=== PATIENT | female | born 1940 | race Hispanic/Latino ===

== ENCOUNTER 2016-09-12 02:17 | Emergency (ER) | payer MEDICARE, OTHER ==
[2016-09-12 02:17] VITALS: PULSE 102
[2016-09-12] MEDS ORDERED: Aspirin 325 mg EC Tablets PO STA (02:45)
--- NOTE | 2016-09-12 02:45 | C.PDOC ---
History Of Present Illness Patient presents to the emergency room with complaints of intermittent left sided chest wall pain that started at 9:30pm. Patient is speaking in full sentences. Patient denies any shortness of breath, fever, chills, nausea, vomiting, or any other complaints. Time Seen by Provider: 09/12/16 02:41 Chief Complaint (Nursing): Chest Pain History Per: Patient History/Exam Limitations: no limitations Onset/Duration Of Symptoms: Hrs (5) Current Symptoms Are (Timing): Still Present Severity: Mild Quality: "Pain" Associated Symptoms: denies: Nausea Modifying Factors: None Exacerbating Factors: None Alleviating Factors: None Recent travel outside of the [place]: No Past Medical History Reviewed: Historical Data, Nursing Documentation, Vital Signs Vital Signs: Last Vital Signs Temp 97.8 F 09/12/16 02:29 Pulse 58 L 09/12/16 02:29 Resp 16 09/12/16 02:29 BP 173/74 H 09/12/16 02:29 Pulse Ox 95 09/12/16 03:27 - Medical History PMH: Arthritis, Atrial Fibrillation, CAD, Diabetes, HTN, Hypercholesterolemia, Osteoporosis Denies: Chronic Kidney Disease, TIA Surgical History: Coronary Stent - [facility] Procedures CORONAR ARTERIOGR-2 CATH (01/26/14) INJECT/INFUSE NEC (01/26/14) INSERTION OF ONE VASCULAR STENT (01/26/14) INSERTION OF TWO VASCULAR STENTS (09/28/12) INSRT OF DRUG-ELUTING CORON ARTERY STENTS(S) (01/26/14) LEFT HEART CARDIAC CATH (01/26/14) LT HEART ANGIOCARDIOGRAM (01/26/14) PERCUTANEOUS TRANSLUMINAL CORONARY ANGIOPLASTY [PTCA] (01/26/14) PROCEDURE ON SINGLE VESSEL (01/26/14) TRANSLUMINAL CORONARY ATHERECTOMY (01/26/14) Family History: States: Unknown Family Hx, Diabetes - Social History Hx Tobacco Use: No Hx Alcohol Use: No Hx Substance Use: No - Immunization History Hx Tetanus Toxoid Vaccination: No Hx Influenza Vaccination: No Hx Pneumococcal Vaccination: No Review Of Systems Constitutional: Negative for: Fever, Chills Cardiovascular: Positive for: Chest Pain (Chest wall pain) Respiratory: Negative for: Shortness of Breath Gastrointestinal: Negative for: Nausea, Vomiting Physical Exam - Physical Exam Appears: Non-toxic Skin: Warm, Dry Neck: Normal ROM, No Midline Cervical Tenderness, No Paracervical Tenderness, Supple Chest: Symmetrical, No Deformity, No Tenderness Cardiovascular: Rhythm Regular Respiratory: No Rales, No Rhonchi, No Wheezing Gastrointestinal/Abdominal: Soft, No Tenderness, No Guarding, No Rebound Back: No CVA Tenderness, No Vertebral Tenderness Extremity: Normal ROM, No Tenderness, No Calf Tenderness, No Swelling Neurological/Psych: Oriented x3, Normal Speech ED Course And Treatment - Laboratory Results Result Diagrams: 09/12/16 02:51 09/12/16 02:51 ECG: Interpreted By Me, Viewed By Me ECG Rhythm: Sinus Rhythm, Nonspecific Changes O2 Sat by Pulse Oximetry: 95 Pulse Ox Interpretation: Normal - Radiology CXR: Interpreted by Me, Viewed By Me CXR Interpretation: No: Infiltrates, Fracture, Pnemothorax Progress Note: Upon provider reevaluation patient is feeling better, is medically stable, and requires no further treatment in the ED at this time. Patient will be discharged home .. Counseling was provided and all questions were answered regarding diagnosis and need for follow up with Dr Cochran. There is agreement to discharge plan. Return if symptoms persist or worsen. Reevaluation Time: 06:31 Reassessment Condition: Improved Medical Decision Making Medical Decision Making: I considered the following diagnoses: acute coronary syndrome, pulmonary embolism, lower respiratory infection, aortic dissection/aneurysm, pneumothorax , pericarditis, esophagitis/GERD, zoster and esophageal rupture but found them to be unlikely based on the history, physical exam, and diagnostics. My conclusions regarding the unlikely diagnoses were based on: the absence of significant EKG abnormalities, the lack of suggestive x-ray findings, the absence of significant abnormalities on cardiac monitoring, the absence of asymmetric pulses, Disposition Counseled Patient/Family Regarding: Studies Performed, Diagnosis, Need For Followup - Disposition Referrals: Anna Cochran MD [Staff Provider] - Disposition: HOME/ ROUTINE Disposition Time: 02:44 Condition: FAIR Additional Instructions: Please return if symptoms recur Instructions: Chest Wall Pain in Children (ED), Chest Pain (DC) Print Language: DJIBOUTIAN - Clinical Impression Clinical Impression: Chest pain - Scribe Statement The provider has reviewed the documentation as recorded by the Kena Louie Provider Scribe Attestation: All medical record entries made by the Garyibaimee were at my direction and personally dictated by me. I have reviewed the chart and agree that the record accurately reflects my personal performance of the history, physical exam, medical decision making, and the department course for this patient. I have also personally directed, reviewed, and agree with the discharge instructions and disposition.
[2016-09-12] MEDS ORDERED: Aspirin 325 mg EC Tablets PO ONE (02:51)
[2016-09-12 02:54] LABS: BASO # 0.1 K/uL (0.0-0.2); BASO % 2.3 % (0.0-2.0); EOS # 0.2 K/uL (0.0-0.7); EOS % 4.2 % (0.0-4.0); LYMPH # 1.6 K/uL (1.0-4.3); LYMPH % 29.1 % (20.0-40.0); MEAN CELL VOLUME 92.5 fL (81.0-99.0); MEAN CORPUSCULAR HEMOGLOBIN 29.6 pg (27.0-31.0); MEAN PLATELET VOLUME 11.1 fL (7.2-11.7); MONO # 0.6 K/uL (0.0-0.8); MONO % 10.8 % (0.0-10.0); RED CELL DISTRIBUTION WIDTH 15.2 % (11.5-14.5); WHITE BLOOD COUNT 5.7 K/uL (4.8-10.8)
[2016-09-12 02:58] LABS: RBC URINE 1 /hpf (0-3); URINE BILIRUBIN NEGATIVE (NEGATIVE); URINE BLOOD NEGATIVE (NEGATIVE); URINE COLOR Yellow (YELLOW); URINE GLUCOSE (UA) NORMAL (Normal); URINE KETONE NEGATIVE (NEGATIVE); URINE LEUKOCYTE ESTERASE 1+ Leu/uL (Negative); URINE PROTEIN NEGATIVE (NEGATIVE); URINE UROBILINOGEN NORMAL mg/dL (0.2-1.0); WBC URINE 9 /hpf (0-5)
[2016-09-12 03:03] LABS: CHLORIDE 103 mmol/L (98-107); SODIUM 141 mmol/L (132-148)
[2016-09-12 03:06] LABS: ALB/GLOB RATIO 1.1 (1.0-2.1); ALKALINE PHOSPHATASE 35 U/L (38-126); ALT/SGPT 28 U/L (9-52); AST/SGOT 31 U/L (14-36); BILIRUBIN,TOTAL 0.5 mg/dL (0.2-1.3); BLOOD UREA NITROGEN 31 mg/dL (7-17); CARBON DIOXIDE 26 mmol/L (22-30); GFR AFRICAN-AMERICAN 44; GLUCOSE,RANDOM 99 mg/dL (65-105); TOTAL PROTEIN 7.5 g/dL (6.3-8.3)
[2016-09-12 03:07] LABS: CALCIUM 10.1 mg/dl (8.6-10.4)
[2016-09-12 06:44] VITALS: BP 149/77; PULSE 64; RESP 20; TEMP 97.6; O2SAT 98
--- NOTE | 2016-09-12 07:47 | RAD ---
PROCEDURE: CHEST RADIOGRAPH, 1 VIEW HISTORY: chest pain COMPARISON: Comparison is made to 06/10/2016 FINDINGS: LUNGS: No evidence of new infiltrate or consolidation in the lungs. PLEURA: No pneumothorax or pleural fluid seen. CARDIOVASCULAR: Normal. OSSEOUS STRUCTURES: No significant abnormalities. VISUALIZED UPPER ABDOMEN: Normal. OTHER FINDINGS: None. IMPRESSION: No active disease.
--- NOTE | 2016-09-17 13:31 | CARD ---
APPROVED REPORT EKG Measurement Heart [id number] UT 160P-22 [id number] <Conclusion> Sinus bradycardia with sinus arrhythmia Minimal voltage criteria for LVH, may be normal variant Borderline ECG
== END 2016-09-12 07:02 | disposition home or self-care (01) ==
LOC: C.ER 02:17
DX: R07.9 Chest pain, unspecified (principal)

== ENCOUNTER 2016-11-17 06:58 | Day surgery (SDC) | payer MEDICARE, OTHER ==
[2016-11-04 07:54] VITALS: BMI 24.7
[~2016-11-17 06:58] MED LIST: Ciprofloxacin 0.3% OPTH SOLN OD SCH; Cyclopentolate 1% Opth (2 ml) OD SCH; Flurbiprofen 0.03% Opht SOLN OD SCH; Lactated Ringer's 500 ML IV ONE; Phenylephrine 2.5% Opht Soln OD SCH; Tropicamide 1% Opht SOLUTION OD SCH
[2016-11-17] MEDS ORDERED: Tobramycin/Dexamethasone (Tobradex) Opth Sol (2.5 ml) ONE (07:34)
[2016-11-17] MEDS ORDERED: Povidone Iodine Ophthalmic 5% Soln ONE (07:34)
[2016-11-17] MEDS ORDERED: Chondroitin/Hyaluronate Opth Syringe KIT (0.55 ml-0.5 ml) IO ONE (07:34)
[2016-11-17] MEDS ORDERED: Carbachol 0.01% IO ONE (07:34)
[2016-11-17] MEDS ORDERED: Tetracaine 0.5% Ophth (OR ONLY) ONE (07:34)
[2016-11-17] MEDS ORDERED: Tobramycin/Dexamethasone OPHT OINT ONE (07:34)
[2016-11-17] MEDS ORDERED: Hyaluronidase Human, Recombi 150 U/ML VIAL ONE (07:34)
[2016-11-17] MEDS ORDERED: Lidocaine 2% Inj (20ml) ONE (07:34)
[2016-11-17] MEDS ORDERED: Lactated Ringer's 500 ML IV ONE (07:40)
[2016-11-17] MEDS ORDERED: Propofol 10 mg/ml Inj (20 ML) ONE (09:18)
[2016-11-17 10:14] VITALS: O2SAT 98
[2016-11-17 11:57] VITALS: BP 151/71; PULSE 64; RESP 18; TEMP 97.8
--- NOTE | 2016-11-20 21:17 | OP ---
PROCEDURE DATE: 11/17/2016 PREOPERATIVE DIAGNOSIS: CATARACT RIGHT EYE. POSTOPERATIVE DIAGNOSIS: CATARACT RIGHT EYE. OPERATIVE PROCEDURE: CATARACT EXTRACTION WITH IMPLANT RIGHT EYE. ANESTHESIA TYPE: LOCAL, STAND-BY. ANESTHESIOLOGIST: COMPLICATIONS: NONE. PROCEDURE: Local anesthesia was achieved using a mixture of 1% lidocaine and Amphadase. The patient was then prepped and draped in the usual sterile fashion for ophthalmic surgery. Betadin e drops were placed into the eye. A lid speculum was used and a sideport incision was made using a 1 5 degree blade. Viscoelastic was used to fill the anterior chamber and a 2.7 millimeter slit blade w as used to create a surgical opening. Additional viscoelastic was placed into the eye and a capsulor rhexis was performed. Hydrodissection and delineation were then carried out. Phacoemulsification of the nucleus was performed with ease and cortical cleanup was achieved without difficulty. The capsul ar bag was refilled using viscoelastic and a posterior chamber lens was inserted through the existing wound and placed into the capsular bag and easily centered. All viscoelastic was then aspirated from the eye and Miochol was instilled for good symmetric pupilla ry constriction. The sideport wound was hydrated as necessary and a good watertight closure was obse rved at the conclusion of the case. A TobraDex soaked collagen shield was then placed over the eye. The lid speculum was removed. TobraDex ointment was placed onto the eye and a patch and shield were placed. The patient tolerated the procedure well. Cesar Hilario MD cc: [id number] TT: 11/20/2016 21:17:04 carol
== END 2016-11-17 11:00 | disposition home or self-care (01) ==
LOC: C.SDS 06:58
PROVIDERS: ATTEND Ophthalmology
DX: H25.11 Age-related nuclear cataract, right eye (principal)
CPT/HCPCS: 66984; J2704; J3470; J7120; V2632

== ENCOUNTER 2017-10-17 08:56 | Emergency (ER) | payer MEDICARE, OTHER ==
[2017-10-17 08:56] VITALS: PULSE 102; BMI 24.7
[2017-10-17 09:07] VITALS: TEMP 98.5
--- NOTE | 2017-10-17 09:15 | C.PDOC ---
History Of Present Illness 77 year old female, with PMHx of HTN, hypercholesterolemia, osteoporosis, CAD w stent, presents to ED for evaluation of chest pain since 9PM last night. Patient 's stress report from 2017 was reviewed. Otherwise, denies cough, shortness of breath, or any other associated symptoms at this time. Time Seen by Provider: 10/17/17 09:11 Chief Complaint (Nursing): Chest Pain History Per: Patient History/Exam Limitations: no limitations Onset/Duration Of Symptoms: Days (1) Current Symptoms Are (Timing): Still Present Quality: "Pain" Associated Symptoms: denies: Nausea, Dyspnea, Diaphoresis, Syncope Modifying Factors: None Exacerbating Factors: None Alleviating Factors: None Recent travel outside of the [place]: No Additional History Per: Patient Past Medical History Reviewed: Historical Data, Nursing Documentation, Vital Signs Vital Signs: Last Vital Signs Temp 98.5 F 10/17/17 09:00 Pulse 54 L 10/17/17 11:17 Resp 16 10/17/17 11:17 BP 121/61 10/17/17 11:17 Pulse Ox 100 10/17/17 11:17 - Medical History PMH: Alzheimer's Disease, Arthritis, Atrial Fibrillation, CAD, Diabetes, HTN, Hypercholesterolemia, Osteoporosis, Chronic Kidney Disease Denies: TIA Surgical History: Coronary Stent - [facility] Procedures CORONAR ARTERIOGR-2 CATH (01/26/14) INJECT/INFUSE NEC (01/26/14) INSERTION OF ONE VASCULAR STENT (01/26/14) INSERTION OF TWO VASCULAR STENTS (09/28/12) INSRT OF DRUG-ELUTING CORON ARTERY STENTS(S) (01/26/14) LEFT HEART CARDIAC CATH (01/26/14) LT HEART ANGIOCARDIOGRAM (01/26/14) PERCUTANEOUS TRANSLUMINAL CORONARY ANGIOPLASTY [PTCA] (01/26/14) PROCEDURE ON SINGLE VESSEL (01/26/14) TRANSLUMINAL CORONARY ATHERECTOMY (01/26/14) Family History: States: Unknown Family Hx, Diabetes - Social History Hx Tobacco Use: No Hx Alcohol Use: No Hx Substance Use: No - Immunization History Hx Tetanus Toxoid Vaccination: No Hx Influenza Vaccination: No Hx Pneumococcal Vaccination: No Review Of Systems Except As Marked, All Systems Reviewed And Found Negative. Constitutional: Negative for: Fever, Chills Cardiovascular: Positive for: Chest Pain. Negative for: Palpitations, Light Headedness Respiratory: Negative for: Cough, Shortness of Breath Gastrointestinal: Negative for: Nausea, Vomiting, Abdominal Pain Neurological: Negative for: Headache, Dizziness Physical Exam - Physical Exam Appears: Non-toxic, No Acute Distress Skin: Normal Color, Warm, Dry Head: Atraumatic, Normacephalic Eye(s): bilateral: Normal Inspection Oral Mucosa: Moist Neck: Normal ROM, Supple Chest: Symmetrical, No Tenderness Cardiovascular: Rhythm Regular, No Murmur Respiratory: Normal Breath Sounds, No Rales, No Rhonchi, No Wheezing Gastrointestinal/Abdominal: Soft, No Tenderness Extremity: Normal ROM Neurological/Psych: Oriented x3, Normal Speech ED Course And Treatment - Laboratory Results Result Diagrams: 10/17/17 10:08 10/17/17 10:08 ECG: Interpreted By Me, Viewed By Me ECG Rhythm: Sinus Rhythm Interpretation Of ECG: T wave inversion in lead III, and AVF unchanged from . Rate From EC (bpm) O2 Sat by Pulse Oximetry: 99 (RA) Pulse Ox Interpretation: Normal - Radiology CXR: Interpreted by Me CXR Interpretation: Yes: No Acute Disease Reevaluation Time: 11:40 Reassessment Condition: Improved Medical Decision Making Medical Decision Making: Plan: Blood work EKG CXR Aspirin Reassess Disposition Counseled Patient/Family Regarding: Studies Performed, Diagnosis, Need For Followup - Disposition Referrals: YOUR,PMD [Other] Disposition: HOME/ ROUTINE Disposition Time: 11:40 Condition: IMPROVED Instructions: Chest Pain (DC) Forms: [facility] (British) Print Language: THAI - Clinical Impression Clinical Impression: Chest pain - Scribe Statement The provider has reviewed the documentation as recorded by the Garyibaimee Zimmerman All medical record entries made by the Garyibaimee were at my direction and personally dictated by me. I have reviewed the chart and agree that the record accurately reflects my personal performance of the history, physical exam, medical decision making, and the department course for this patient. I have also personally directed, reviewed, and agree with the discharge instructions and disposition.
[2017-10-17] MEDS ORDERED: Aspirin 325 mg EC Tablets PO STA (09:54)
[2017-10-17 10:11] LABS: BASO # 0.1 K/uL (0.0-0.2); BASO % 1.8 % (0.0-2.0); EOS # 0.2 K/uL (0.0-0.7); HEMOGLOBIN 11.3 g/dL (11.0-16.0); LYMPH # 1.1 K/uL (1.0-4.3); LYMPH % 18.1 % (20.0-40.0); MEAN CELL VOLUME 91.2 fL (81.0-99.0); MEAN CORPUSCULAR HEMOGLOBIN 30.9 pg (27.0-31.0); MEAN CORPUSCULAR HGB CONC 33.8 g/dL (33.0-37.0); MEAN PLATELET VOLUME 11.4 fL (7.2-11.7); MONO # 0.6 K/uL (0.0-0.8); MONO % 9.7 % (0.0-10.0); NEUT % 67.4 % (50.0-75.0); RBC 3.67 Mil/uL (3.80-5.20); RED CELL DISTRIBUTION WIDTH 15.2 % (11.5-14.5)
[2017-10-17] MEDS ORDERED: Aspirin 325 mg EC Tablets PO ONE (10:12)
[2017-10-17 10:26] LABS: BLOOD UREA NITROGEN 44 mg/dL (7-17); CALCIUM 10.2 mg/dl (8.6-10.4); GFR AFRICAN-AMERICAN 33; GFR NON-AFRICAN AMERICAN 27
[2017-10-17 11:17] VITALS: BP 121/61; PULSE 54; RESP 16
[2017-10-17 11:41] VITALS: O2SAT 99
--- NOTE | 2017-10-17 11:50 | RAD ---
PROCEDURE: CHEST RADIOGRAPH, 1 VIEW HISTORY: Chest pain COMPARISON: Comparison chest dated 09/12/2017 FINDINGS: LUNGS: Poor inspiration with low lung volumes, crowded bronchovascular markings and mild bibasilar atelectasis. Questionable small granuloma left lung apex PLEURA: No pneumothorax or pleural fluid seen. CARDIOVASCULAR: Heart size is upper limits of normal/ borderline enlarged. OSSEOUS STRUCTURES: No significant abnormalities. VISUALIZED UPPER ABDOMEN: Normal. OTHER FINDINGS: None. IMPRESSION: Poor inspiration with low lung volumes, crowded bronchovascular markings and mild bibasilar atelectasis.
--- NOTE | 2017-10-18 16:05 | CARD ---
APPROVED REPORT EKG Measurement Heart [id number] NM [id number] [id number] <Conclusion> Normal sinus rhythm Moderate voltage criteria for LVH, may be normal variant Cannot rule out Inferior infarct, age undetermined Abnormal ECG
== END 2017-10-17 11:48 | disposition home or self-care (01) ==
LOC: C.ER 08:56
DX: R07.9 Chest pain, unspecified (principal); E78.00 Pure hypercholesterolemia, unspecified; I25.10 Atherosclerotic heart disease of native coronary artery without angina pectoris; I12.9 Hypertensive chronic kidney disease with stage 1 through stage 4 chronic kidney disease, or unspecified chronic kidney disease; N18.9 Chronic kidney disease, unspecified; F02.80 Dementia in other diseases classified elsewhere, unspecified severity, without behavioral disturbance, psychotic disturbance, mood disturbance, and anxiety; G30.9 Alzheimer's disease, unspecified; I48.91 Unspecified atrial fibrillation

== ENCOUNTER 2018-02-03 01:28 | Inpatient (IN) | payer MEDICARE, OTHER ==
[2018-02-03 01:29] VITALS: PULSE 102; BMI 24.7
[2018-02-03 02:03] LABS: BASO # 0.1 K/uL (0.0-0.2); BASO % 1.5 % (0.0-2.0); EOS # 0.2 K/uL (0.0-0.7); EOS % 3.7 % (0.0-4.0); HEMOGLOBIN 11.2 g/dL (11.0-16.0); LYMPH # 1.7 K/uL (1.0-4.3); LYMPH % 29.3 % (20.0-40.0); MEAN CELL VOLUME 91.1 fL (81.0-99.0); MEAN CORPUSCULAR HEMOGLOBIN 30.8 pg (27.0-31.0); MEAN CORPUSCULAR HGB CONC 33.8 g/dL (33.0-37.0); MEAN PLATELET VOLUME 10.9 fL (7.2-11.7); MONO # 0.7 K/uL (0.0-0.8); MONO % 12.6 % (0.0-10.0); NEUT # 3.1 K/uL (1.8-7.0); NEUT % 52.9 % (50.0-75.0); NRBC % 0.1 % (0.0-2.0); RBC 3.64 Mil/uL (3.80-5.20); WHITE BLOOD COUNT 5.8 K/uL (4.8-10.8)
[2018-02-03 02:12] LABS: PROTHROMBIN TIME 11.1 SECONDS (9.7-12.2)
[2018-02-03 02:14] LABS: ALB/GLOB RATIO 1.2 (1.0-2.1); ALT/SGPT 25 U/L (9-52); AST/SGOT 27 U/L (14-36); BLOOD UREA NITROGEN 47 mg/dL (7-17); CALCIUM 10.1 mg/dl (8.6-10.4); GFR NON-AFRICAN AMERICAN 27
[2018-02-03 03:11] LABS: HDL CHOLESTEROL 51 mg/dL (30-70)
--- NOTE | 2018-02-03 03:13 | C.PDOC ---
History Of Present Illness 77yo female, with history of hypertension, high cholesterol, cardiac stent placed 5 years ago, comes to ER for evaluation of chest pain, intermittently present since 8PM last night. She reports the pain is 4/10 and has become persistent, causing her concern. She denies any fever, chills, sweats, Time Seen by Provider: 02/03/18 01:46 Chief Complaint (Nursing): Chest Pain History Per: Patient History/Exam Limitations: no limitations Onset/Duration Of Symptoms: Intermittent Episodes, Persistent Current Symptoms Are (Timing): Still Present Pain Scale Rating Of: 4 Additional History Per: Patient Past Medical History Reviewed: Historical Data, Nursing Documentation, Vital Signs Vital Signs: Last Vital Signs Temp 98.1 F 02/03/18 01:36 Pulse 54 L 02/03/18 05:38 Resp 16 02/03/18 05:38 BP 154/69 H 02/03/18 05:38 Pulse Ox 97 02/03/18 05:56 - Medical History PMH: Alzheimer's Disease, Arthritis, Atrial Fibrillation, CAD, Diabetes, HTN, Hypercholesterolemia, Osteoporosis, Chronic Kidney Disease Denies: TIA Surgical History: Coronary Stent - [facility] Procedures CORONAR ARTERIOGR-2 CATH (01/26/14) INJECT/INFUSE NEC (01/26/14) INSERTION OF ONE VASCULAR STENT (01/26/14) INSERTION OF TWO VASCULAR STENTS (09/28/12) INSRT OF DRUG-ELUTING CORON ARTERY STENTS(S) (01/26/14) LEFT HEART CARDIAC CATH (01/26/14) LT HEART ANGIOCARDIOGRAM (01/26/14) PERCUTANEOUS TRANSLUMINAL CORONARY ANGIOPLASTY [PTCA] (01/26/14) PROCEDURE ON SINGLE VESSEL (01/26/14) TRANSLUMINAL CORONARY ATHERECTOMY (01/26/14) Family History: States: Diabetes - Social History Hx Tobacco Use: No Hx Alcohol Use: No Hx Substance Use: No - Immunization History Hx Tetanus Toxoid Vaccination: No Hx Influenza Vaccination: No Hx Pneumococcal Vaccination: No Review Of Systems Except As Marked, All Systems Reviewed And Found Negative. Constitutional: Negative for: Fever, Chills Cardiovascular: Positive for: Chest Pain. Negative for: Palpitations Respiratory: Negative for: Shortness of Breath Gastrointestinal: Negative for: Vomiting, Abdominal Pain Musculoskeletal: Negative for: Neck Pain, Arm Pain, Back Pain Neurological: Negative for: Weakness, Numbness Physical Exam - Physical Exam Appears: No Acute Distress Skin: Normal Color, Warm, Dry Head: Atraumatic, Normacephalic Eye(s): bilateral: Normal Inspection, PERRL, EOMI Neck: Normal, Supple Chest: Symmetrical Cardiovascular: Rhythm Regular Respiratory: Normal Breath Sounds, No Wheezing Gastrointestinal/Abdominal: Normal Exam, Soft, No Tenderness Back: Normal Inspection, No CVA Tenderness, No Vertebral Tenderness, No Paraspinal Tenderness Extremity: Normal ROM, No Tenderness, No Pedal Edema Neurological/Psych: Oriented x3 ED Course And Treatment - Laboratory Results Result Diagrams: 02/03/18 01:57 02/03/18 01:57 ECG: Interpreted By Me, Viewed By Me ECG Rhythm: Sinus Rhythm Interpretation Of ECG: NE 180 QRS 98 QT 416 QTc 432. No ischemic changes. No changes from prior in 10/2017 Rate From EC O2 Sat by Pulse Oximetry: 97 (RA) Pulse Ox Interpretation: Normal Medical Decision Making Medical Decision Making: Plan: * Labs * CXR * EKG * Fentanyl 25mcg IVP [address] Rivers and patient admitted under his service. CXR: No acute pathology. Unchanged from previous. Disposition Counseled Patient/Family Regarding: Diagnosis - Disposition Disposition: HOSPITALIZED Disposition Time: 05:56 Condition: GOOD - Clinical Impression Clinical Impression: Chest pain
[2018-02-03 03:22] LABS: LDL CHOLESTEROL 50 mg/dL (0-129)
--- NOTE | 2018-02-03 08:03 | RAD ---
Chest x-ray two views History: Chest pain. Comparison: 09/12/2016 Findings: Biapical pleural thickening with upper lobe granulomatous changes. Patchy increased markings at the lung bases; left greater than right. Nodular density at the right lung base may represent confluence of shadows of ribs and vessels. Bibasilar breast and nipple shadows. Tortuous aorta. Top normal heart size. Degenerative changes in the spine and shoulders. Impression: Biapical pleural thickening with upper lobe granulomatous changes. Patchy increased markings at the lung bases; left greater than right. Nodular density at the right lung base may represent confluence of shadows of ribs and vessels. Bibasilar breast and nipple shadows. Tortuous aorta.
[2018-02-03 08:18] LABS: CK-MB 0.95 ng/mL (0.0-3.38); TROPONIN I 0.015 ng/mL (0.00-0.120)
[2018-02-03] MEDS ORDERED: Enoxaparin 40 mg Syringe SC SCH (10:00)
[2018-02-03 12:37] VITALS: RESP 20
[2018-02-03 14:57] LABS: CK-MB 1.05 ng/mL (0.0-3.38); TROPONIN I 0.021 ng/mL (0.00-0.120)
--- NOTE | 2018-02-03 19:06 | CARD ---
APPROVED REPORT Date of service: 02/03/2018 EKG Measurement Heart [id number] IN 196P99 [id number] <Conclusion> Normal sinus rhythm Possible Inferior infarct, age undetermined Abnormal ECG
--- NOTE | 2018-02-03 22:47 | CP.PCM.HP ---
Past Patient History - Infectious Disease Hx of Infectious Diseases: None - Tetanus Immunizations Tetanus Immunization: Unknown - Past Medical History & Family History Past Medical History?: Yes - Past Social History Smoking Status: Never Smoked - CARDIAC Hx Atrial Fibrillation: Yes Hx Hypercholesterolemia: Yes Hx Hypertension: Yes - PULMONARY Hx Respiratory Disorders: No - NEUROLOGICAL Hx Alzheimer's Disease: Yes Hx Transient Ischemic Attacks (TIA): No - HEENT Hx HEENT Problems: Yes Hx Cataracts: Yes - RENAL Hx Chronic Kidney Disease: Yes - ENDOCRINE/METABOLIC Hx Endocrine Disorders: No Hx Diabetes Mellitus Type 1: No Hx Diabetes Mellitus Type 2: No - HEMATOLOGICAL/ONCOLOGICAL Hx Blood Disorders: No - INTEGUMENTARY Hx Dermatological Problems: No - MUSCULOSKELETAL/RHEUMATOLOGICAL Hx Falls: No - GASTROINTESTINAL Hx Gastrointestinal Disorders: No - GENITOURINARY/GYNECOLOGICAL Hx Genitourinary Disorders: No - PSYCHIATRIC Hx Substance Use: No - SURGICAL HISTORY Hx Coronary Stent: Yes - ANESTHESIA Hx Anesthesia: Yes Hx Anesthesia Reactions: No Hx Malignant Hyperthermia: No Meds Allergies/Adverse Reactions: Allergies Allergy/AdvReac Type Severity Reaction Status Date / Time iodine Allergy Mild ITCHING Verified 02/03/18 01:41 [email or web address] AdvReac Severe NAUSEA Verified 02/03/18 01:41 Results - Vital Signs Recent Vital Signs: Last Vital Signs Temp 98.2 F 02/03/18 15:06 Pulse 57 L 02/03/18 20:00 Resp 20 02/03/18 15:06 BP 123/70 02/03/18 15:06 Pulse Ox 97 02/03/18 15:06 - Labs Result Diagrams: 02/03/18 01:57 02/03/18 01:57 Labs: Laboratory Results - last 24 hr 02/03/18 02/03/18 02/03/18 01:57 01:57 01:57 WBC 5.8 RBC 3.64 L Hgb 11.2 Hct 33.1 L MCV 91.1 MCH 30.8 MCHC 33.8 RDW 15.0 H Plt Count 248 MPV 10.9 Neut % (Auto) 52.9 Lymph % (Auto) 29.3 Phelps % (Auto) 12.6 H Eos % (Auto) 3.7 Baso % (Auto) 1.5 Neut # (Auto) 3.1 Lymph # (Auto) 1.7 Phelps # (Auto) 0.7 Eos # (Auto) 0.2 Baso # (Auto) 0.1 PT 11.1 INR 1.0 APTT 31 Sodium 144 Potassium 4.2 Chloride 108 H Carbon Dioxide 25 Anion Gap 15 BUN 47 H Creatinine 1.8 H Est GFR ( Amer) 33 Est GFR (Non-Af Amer) 27 Random Glucose 106 H Hemoglobin A1c Calcium 10.1 Magnesium Total Bilirubin 0.4 AST 27 ALT 25 Alkaline Phosphatase 37 L Total Creatine Kinase CK-MB (Mass) Troponin I < 0.0120 Total Protein 7.3 Albumin 4.0 Globulin 3.3 Albumin/Globulin Ratio 1.2 Triglycerides Cholesterol LDL Cholesterol Direct HDL Cholesterol TSH 3rd Generation 02/03/18 02/03/18 02/03/18 02:09 04:38 06:25 WBC RBC Hgb Hct MCV MCH MCHC RDW Plt Count MPV Neut % (Auto) Lymph % (Auto) Phelps % (Auto) Eos % (Auto) Baso % (Auto) Neut # (Auto) Lymph # (Auto) Phelps # (Auto) Eos # (Auto) Baso # (Auto) PT INR APTT Sodium Potassium Chloride Carbon Dioxide Anion Gap BUN Creatinine Est GFR ( Amer) Est GFR (Non-Af Amer) Random Glucose Hemoglobin A1c 6.3 Calcium Magnesium 2.1 Total Bilirubin AST ALT Alkaline Phosphatase Total Creatine Kinase CK-MB (Mass) Troponin I < 0.0120 Total Protein Albumin Globulin Albumin/Globulin Ratio Triglycerides 85 Cholesterol 140 LDL Cholesterol Direct 50 HDL Cholesterol 51 TSH 3rd Generation 1.52 02/03/18 02/03/18 07:49 14:07 WBC RBC Hgb Hct MCV MCH MCHC RDW Plt Count MPV Neut % (Auto) Lymph % (Auto) Phelps % (Auto) Eos % (Auto) Baso % (Auto) Neut # (Auto) Lymph # (Auto) Phelps # (Auto) Eos # (Auto) Baso # (Auto) PT INR APTT Sodium Potassium Chloride Carbon Dioxide Anion Gap BUN Creatinine Est GFR ( Amer) Est GFR (Non-Af Amer) Random Glucose Hemoglobin A1c Calcium Magnesium Total Bilirubin AST ALT Alkaline Phosphatase Total Creatine Kinase 64 80 CK-MB (Mass) 0.95 1.05 Troponin I 0.0150 0.0210 Total Protein Albumin Globulin Albumin/Globulin Ratio Triglycerides Cholesterol LDL Cholesterol Direct HDL Cholesterol TSH 3rd Generation
--- NOTE | 2018-02-03 22:48 | CARD ---
APPROVED REPORT Date of service: 02/03/2018 EXAM: Two-dimensional and M-mode echocardiogram with Doppler and color Doppler. Other Information Quality : GoodRhythm : INDICATION Dyspnea Atrial Fibrillation Cardiac Disease: CAD Chest Pain Palpitations 2D DIMENSIONS IVSd0.8 (0.7-1.1cm)Aortic Root (2D)2.8 (2.0-3.7cm) LVDd5.2 (3.9-5.9cm)PWd0.9 (0.7-1.1cm) LVDs3.1 (2.5-4.0cm)FS (%) 39.4 % LVEF (%)69.5 (>50%) M-Mode DIMENSIONS Left Atrium (MM)3.59 (2.5-4.0cm)IVSd1.76 (0.7-1.1cm) Aortic Root3.01 (2.2-3.7cm)LVDd4.62 (4.0-5.6cm) Aortic Cusp Exc.2.01 (1.5-2.0cm)PWd1.21 (0.7-1.1cm) FS (%) 34 %LVDs3.04 (2.0-3.8cm) LVEF (%)63 (>50%) Mitral Valve MV E Sbewppbi10.4cm/sMV A Orueekba74.0cm/sE/A ratio0.7 TDI E/Lateral E'0.0E/Medial E'0.0 Tricuspid Valve TR Peak Nozbrydf076zl/sTR Peak Gr.[id number] LEFT VENTRICLE The left ventricle is normal size. There is mild concentric left ventricular hypertrophy. Left ventricle systolic function is normal. The Ejection Fraction is 65-70%. There is normal LV segmental wall motion. Tissue Doppler imaging reveals abnormal left ventricular diastolic dysfunction. RIGHT VENTRICLE The right ventricle is normal size. There is normal right ventricular wall thickness. The right ventricular systolic function is normal. ATRIA The left atrium size is normal. The right atrium size is normal. The interatrial septum is intact with no evidence for an atrial septal defect. AORTIC VALVE The aortic valve is normal in structure. No aortic regurgitation is present. There is no aortic valvular stenosis. MITRAL VALVE The posterior mitral valve leaflet appears thickened and calcified , but open well. There is no evidence of mitral valve prolapse. There is no mitral valve stenosis. Mitral regurgitation is mild. TRICUSPID VALVE The tricuspid valve is normal in structure. There is mild tricuspid regurgitation. Right ventricular systolic pressure is estimated at 30-40 mmHg. There is mild pulmonary hypertension. PULMONIC VALVE The pulmonic valve is not well visualized. There is mild pulmonic valvular regurgitation. GREAT VESSELS The aortic root is normal in size. PERICARDIAL EFFUSION There is no significant pericardial effusion. <Conclusion> Left ventricle systolic function is normal. The Ejection Fraction is 65-70%. Hypertensive heart disease. Diastolic dysfunction. No aortic regurgitation is present. Mitral regurgitation is mild. There is mild tricuspid regurgitation. There is mild pulmonary hypertension. There is mild pulmonic valvular regurgitation.
--- NOTE | 2018-02-03 22:52 | CP.PCM.CON ---
History of Present Illness - History of Present Illness History of Present Illness: CC: Chest Pain 77yo female, with history of hypertension, high cholesterol, cardiac stent placed 5 years ago, comes to ER for evaluation of chest pain, intermittently present since 8PM last night. She reports the pain is 4/10 and has become persistent, causing her concern. She denies any fever, chills, sweats, Chief Complaint (Nursing): Chest Pain History Per: Patient History/Exam Limitations: no limitations Onset/Duration Of Symptoms: Intermittent Episodes, Persistent Current Symptoms Are (Timing): Still Present Pain Scale Rating Of: 4 Additional History Per: Patient Past Medical History Reviewed: Historical Data, Nursing Documentation, Vital Signs Vital Signs: Last Vital Signs Temp 98.1 F 02/03/18 01:36 Pulse 54 L 02/03/18 05:38 Resp 16 02/03/18 05:38 BP 154/69 H 02/03/18 05:38 Pulse Ox 97 02/03/18 05:56 - Medical History PMH: Alzheimer's Disease, Arthritis, Atrial Fibrillation, CAD, Diabetes, HTN, Hypercholesterolemia, Osteoporosis, Chronic Kidney Disease Denies: TIA Surgical History: Coronary Stent - [facility] Procedures CORONAR ARTERIOGR-2 CATH (01/26/14) INJECT/INFUSE NEC (01/26/14) INSERTION OF ONE VASCULAR STENT (01/26/14) INSERTION OF TWO VASCULAR STENTS (09/28/12) INSRT OF DRUG-ELUTING CORON ARTERY STENTS(S) (01/26/14) LEFT HEART CARDIAC CATH (01/26/14) LT HEART ANGIOCARDIOGRAM (01/26/14) PERCUTANEOUS TRANSLUMINAL CORONARY ANGIOPLASTY [PTCA] (01/26/14) PROCEDURE ON SINGLE VESSEL (01/26/14) TRANSLUMINAL CORONARY ATHERECTOMY (01/26/14) Family History: States: Diabetes - Social History Hx Tobacco Use: No Hx Alcohol Use: No Hx Substance Use: No - Immunization History Hx Tetanus Toxoid Vaccination: No Hx Influenza Vaccination: No Hx Pneumococcal Vaccination: No Review Of Systems Except As Marked, All Systems Reviewed And Found Negative. Constitutional: Negative for: Fever, Chills Cardiovascular: Positive for: Chest Pain. Negative for: Palpitations Respiratory: Negative for: Shortness of Breath Gastrointestinal: Negative for: Vomiting, Abdominal Pain Musculoskeletal: Negative for: Neck Pain, Arm Pain, Back Pain Neurological: Negative for: Weakness, Numbness Physical Exam - Physical Exam Appears: No Acute Distress Skin: Normal Color, Warm, Dry Head: Atraumatic, Normacephalic Eye(s): bilateral: Normal Inspection, PERRL, EOMI Neck: Normal, Supple Chest: Symmetrical Cardiovascular: Rhythm Regular Respiratory: Normal Breath Sounds, No Wheezing Gastrointestinal/Abdominal: Normal Exam, Soft, No Tenderness Back: Normal Inspection, No CVA Tenderness, No Vertebral Tenderness, No Paraspinal Tenderness Extremity: Normal ROM, No Tenderness, No Pedal Edema Neurological/Psych: Oriented x3 Past Patient History - Infectious Disease Hx of Infectious Diseases: None - Tetanus Immunizations Tetanus Immunization: Unknown - Past Medical History & Family History Past Medical History?: Yes - Past Social History Smoking Status: Never Smoked - CARDIAC Hx Atrial Fibrillation: Yes Hx Hypercholesterolemia: Yes Hx Hypertension: Yes - PULMONARY Hx Respiratory Disorders: No - NEUROLOGICAL Hx Alzheimer's Disease: Yes Hx Transient Ischemic Attacks (TIA): No - HEENT Hx HEENT Problems: Yes Hx Cataracts: Yes - RENAL Hx Chronic Kidney Disease: Yes - ENDOCRINE/METABOLIC Hx Endocrine Disorders: No Hx Diabetes Mellitus Type 1: No Hx Diabetes Mellitus Type 2: No - HEMATOLOGICAL/ONCOLOGICAL Hx Blood Disorders: No - INTEGUMENTARY Hx Dermatological Problems: No - MUSCULOSKELETAL/RHEUMATOLOGICAL Hx Falls: No - GASTROINTESTINAL Hx Gastrointestinal Disorders: No - GENITOURINARY/GYNECOLOGICAL Hx Genitourinary Disorders: No - PSYCHIATRIC Hx Substance Use: No - SURGICAL HISTORY Hx Coronary Stent: Yes - ANESTHESIA Hx Anesthesia: Yes Hx Anesthesia Reactions: No Hx Malignant Hyperthermia: No Meds Allergies/Adverse Reactions: Allergies Allergy/AdvReac Type Severity Reaction Status Date / Time iodine Allergy Mild ITCHING Verified 02/03/18 01:41 regadenoson AdvReac Severe NAUSEA Verified 02/03/18 01:41 - Medications Medications: Current Medications Allopurinol (Zyloprim) 100 mg PO DAILY [facility] Last Admin: 02/03/18 10:53 Dose: 100 mg Aspirin (Ecotrin) 81 mg PO DAILY [facility] Last Admin: 02/03/18 10:53 Dose: Not Given Carvedilol (Coreg) 3.125 mg PO BID [facility] Enoxaparin Sodium (Lovenox) 40 mg SC DAILY [facility] Last Admin: 02/03/18 11:12 Dose: 40 mg Fenofibrate (Tricor) 48 mg PO QPM [facility] Last Admin: 02/03/18 17:31 Dose: 48 mg Hydrochlorothiazide (Hydrodiuril) 25 mg PO DAILY [facility] Last Admin: 02/03/18 10:53 Dose: 25 mg Losartan Potassium (Cozaar) 100 mg PO DAILY [facility] Last Admin: 02/03/18 10:53 Dose: 100 mg Rosuvastatin Calcium (Crestor) 10 mg PO HS [facility] Last Admin: 02/03/18 21:34 Dose: 10 mg Ticagrelor (Brilinta) 60 mg PO BID [facility] Last Admin: 02/03/18 17:31 Dose: 60 mg Results - Vital Signs Recent Vital Signs: Last Vital Signs Temp 98.2 F 02/03/18 15:06 Pulse 57 L 02/03/18 20:00 Resp 20 02/03/18 15:06 BP 123/70 02/03/18 15:06 Pulse Ox 97 02/03/18 15:06 - Labs Result Diagrams: 02/03/18 01:57 02/03/18 01:57 Labs: Laboratory Results - last 24 hr 02/03/18 02/03/18 02/03/18 01:57 01:57 01:57 WBC 5.8 RBC 3.64 L Hgb 11.2 Hct 33.1 L MCV 91.1 MCH 30.8 MCHC 33.8 RDW 15.0 H Plt Count 248 MPV 10.9 Neut % (Auto) 52.9 Lymph % (Auto) 29.3 Amelia % (Auto) 12.6 H Eos % (Auto) 3.7 Baso % (Auto) 1.5 Neut # (Auto) 3.1 Lymph # (Auto) 1.7 Amelia # (Auto) 0.7 Eos # (Auto) 0.2 Baso # (Auto) 0.1 PT 11.1 INR 1.0 APTT 31 Sodium 144 Potassium 4.2 Chloride 108 H Carbon Dioxide 25 Anion Gap 15 BUN 47 H Creatinine 1.8 H Est GFR ( Amer) 33 Est GFR (Non-Af Amer) 27 Random Glucose 106 H Hemoglobin A1c Calcium 10.1 Magnesium Total Bilirubin 0.4 AST 27 ALT 25 Alkaline Phosphatase 37 L Total Creatine Kinase CK-MB (Mass) Troponin I < 0.0120 Total Protein 7.3 Albumin 4.0 Globulin 3.3 Albumin/Globulin Ratio 1.2 Triglycerides Cholesterol LDL Cholesterol Direct HDL Cholesterol TSH 3rd Generation 0802/03/18 02/03/18 02:09 04:38 06:25 WBC RBC Hgb Hct MCV MCH MCHC RDW Plt Count MPV Neut % (Auto) Lymph % (Auto) Amelia % (Auto) Eos % (Auto) Baso % (Auto) Neut # (Auto) Lymph # (Auto) Amelia # (Auto) Eos # (Auto) Baso # (Auto) PT INR APTT Sodium Potassium Chloride Carbon Dioxide Anion Gap BUN Creatinine Est GFR ( Amer) Est GFR (Non-Af Amer) Random Glucose Hemoglobin A1c 6.3 Calcium Magnesium 2.1 Total Bilirubin AST ALT Alkaline Phosphatase Total Creatine Kinase CK-MB (Mass) Troponin I < 0.0120 Total Protein Albumin Globulin Albumin/Globulin Ratio Triglycerides 85 Cholesterol 140 LDL Cholesterol Direct 50 HDL Cholesterol 51 TSH 3rd Generation 1.52 02/03/18 02/03/18 07:49 14:07 WBC RBC Hgb Hct MCV MCH MCHC RDW Plt Count MPV Neut % (Auto) Lymph % (Auto) Amelia % (Auto) Eos % (Auto) Baso % (Auto) Neut # (Auto) Lymph # (Auto) Amelia # (Auto) Eos # (Auto) Baso # (Auto) PT INR APTT Sodium Potassium Chloride Carbon Dioxide Anion Gap BUN Creatinine Est GFR ( Amer) Est GFR (Non-Af Amer) Random Glucose Hemoglobin A1c Calcium Magnesium Total Bilirubin AST ALT Alkaline Phosphatase Total Creatine Kinase 64 80 CK-MB (Mass) 0.95 1.05 Troponin I 0.0150 0.0210 Total Protein Albumin Globulin Albumin/Globulin Ratio Triglycerides Cholesterol LDL Cholesterol Direct HDL Cholesterol TSH 3rd Generation Assessment & Plan - Assessment and Plan (Free Text) Assessment: Chest Pain Hx of CAD Check ECHO and stress test
[2018-02-04] MEDS ORDERED: Caffeine Citrated **INJ** 20 MG/ML IV ONE (07:27)
--- NOTE | 2018-02-04 08:20 | HP ---
Copied To: José Rivers MD Attending MD: José Rivers MD CHIEF COMPLAINT: Chest pain, left pericardial, x1. HISTORY OF PRESENT ILLNESS: This is a 77-year-old female with history of hypertension and hyperlipidemia. She has history of coronary artery disease, status post stent placement 5 years ago, who is compliant with the diet medication and followup, and last night at 8 p.m., she developed left pericardial chest pain, intermittent, 4/10, on and off until it came persistent and she came to emergency room, associated with diaphoresis, dizziness, palpitation, weakness. The patient denies any orthopnea or PND. She denies any exertional chest pain. She denies any cough, sore throat, or running nose. She denies any pleurisy, dyspepsia, nausea, or vomiting. She denies any polyuria, polydipsia, or polyphagia. She denies any hematuria or pyuria. She denies any sneezing, itchy eyes, or itchy nose. She denies any history of hemoptysis, melena, or hematochezia. PAST MEDICAL HISTORY: Hypertension, hyperlipidemia, coronary artery disease, status post stents. CURRENT MEDICATIONS: Fenofibrate, multivitamin, Lipitor, Brilinta, Hyzaar, Zyloprim, Coreg. SOCIAL HISTORY: Nonsmoker, non-ETOH user. PHYSICAL EXAMINATION: GENERAL: An elderly female in no acute distress at the moment. She has no chest pain. VITAL SIGNS: Blood pressure 122/70, pulse 57, respiratory rate 20, temperature 98.2. SKIN: Senile, turgor. No bruises. No purpura. No petechiae. HEENT: Atraumatic and normocephalic. Negative pallor. Negative jaundice. Extraocular movements are intact. NECK: Supple. No JVD. No lymph node. No thyromegaly. No carotid bruits. CHEST: Chest wall bilaterally symmetrical expansion. No masses. LUNGS: Bilaterally clear. No rales or rhonchi. CVS: S1 and S2 plus S3 positive. ABDOMEN: Soft, nontender. Bowel sounds are positive. RECTAL: No masses. No bleeding. EXTREMITIES: No clubbing, cyanosis, or edema. COGENERATION OPERATOR: Awake, alert, and oriented x3. ASSESSMENT: 1. Chest pain, rule out myocardial infraction, rule out coronary artery disease. 2. Hypertension. 3. Hyperlipidemia. PLAN: Admit. Detailed orders written. Seen and examined. José Rivers MD
[2018-02-04] MEDS: Enoxaparin 30 mg Syringe SC SCH ×2 (13:47→13:49)
--- NOTE | 2018-02-04 18:03 | CARD ---
APPROVED REPORT Date of service: 02/03/2018 EKG Measurement Heart [id number] OR 180P [id number] <Conclusion> Normal sinus rhythm Cannot rule out Inferior infarct, age undetermined Abnormal ECG
--- NOTE | 2018-02-04 23:43 | CP.PCM.PN ---
Objective - Vital Signs/Intake and Output Vital Signs (last 24 hours): Temp Pulse Resp BP Pulse Ox 97.9 F 62 20 120/72 98 02/04/18 15:00 02/04/18 15:00 02/04/18 15:00 02/04/18 15:00 02/04/18 15:00 - Medications Medications: Current Medications Allopurinol (Zyloprim) 100 mg PO DAILY [facility] Last Admin: 02/04/18 13:48 Dose: 100 mg Aspirin (Ecotrin) 81 mg PO DAILY [facility] Last Admin: 02/04/18 13:48 Dose: 81 mg Carvedilol (Coreg) 3.125 mg PO BID [facility] Last Admin: 02/04/18 18:02 Dose: 3.125 mg Enoxaparin Sodium (Lovenox) 30 mg SC DAILY [facility] Last Admin: 02/04/18 13:49 Dose: Not Given Fenofibrate (Tricor) 48 mg PO QPM [facility] Last Admin: 02/04/18 18:02 Dose: 48 mg Hydrochlorothiazide (Hydrodiuril) 25 mg PO DAILY [facility] Last Admin: 02/04/18 13:48 Dose: 25 mg Losartan Potassium (Cozaar) 100 mg PO DAILY [facility] Last Admin: 02/04/18 13:48 Dose: 100 mg Rosuvastatin Calcium (Crestor) 10 mg PO HS [facility] Last Admin: 02/04/18 21:18 Dose: 10 mg Ticagrelor (Brilinta) 60 mg PO BID [facility] Last Admin: 02/04/18 18:02 Dose: 60 mg - Labs Labs: 02/03/18 01:57 02/03/18 01:57 PT 11.1 SECONDS (9.7-12.2) 02/03/18 01:57 INR 1.0 02/03/18 01:57 APTT 31 SECONDS (21-34) 02/03/18 01:57
[2018-02-05 01:31] VITALS: O2SAT 97
[2018-02-05 08:13] VITALS: BP 109/62; TEMP 97.7
[2018-02-05 08:15] VITALS: PULSE 51
--- NOTE | 2018-02-05 08:40 | CP.PCM.PN ---
Subjective - Date & Time of Evaluation Date of Evaluation: 02/04/18 Time of Evaluation: 22:10 - Subjective Subjective: Patient s/p stress test Fixed Inferior defect and no stress induced ischemia No cardiac cath needed at this time Medical management for CAD Objective - Vital Signs/Intake and Output Vital Signs (last 24 hours): Temp Pulse Resp BP Pulse Ox 97.7 F 51 L 20 109/62 97 02/05/18 08:11 02/05/18 08:13 02/05/18 08:11 02/05/18 08:11 02/05/18 08:11 - Medications Medications: Current Medications Allopurinol (Zyloprim) 100 mg PO DAILY [facility] Last Admin: 02/04/18 13:48 Dose: 100 mg Aspirin (Ecotrin) 81 mg PO DAILY [facility] Last Admin: 02/04/18 13:48 Dose: 81 mg Carvedilol (Coreg) 3.125 mg PO BID [facility] Last Admin: 02/04/18 18:02 Dose: 3.125 mg Enoxaparin Sodium (Lovenox) 30 mg SC DAILY [facility] Last Admin: 02/04/18 13:49 Dose: Not Given Fenofibrate (Tricor) 48 mg PO QPM [facility] Last Admin: 02/04/18 18:02 Dose: 48 mg Hydrochlorothiazide (Hydrodiuril) 25 mg PO DAILY [facility] Last Admin: 02/04/18 13:48 Dose: 25 mg Losartan Potassium (Cozaar) 100 mg PO DAILY [facility] Last Admin: 02/04/18 13:48 Dose: 100 mg Rosuvastatin Calcium (Crestor) 10 mg PO HS [facility] Last Admin: 02/04/18 21:18 Dose: 10 mg Ticagrelor (Brilinta) 60 mg PO BID [facility] Last Admin: 02/04/18 18:02 Dose: 60 mg - Labs Labs: 02/03/18 01:57 02/03/18 01:57 PT 11.1 SECONDS (9.7-12.2) 02/03/18 01:57 INR 1.0 02/03/18 01:57 APTT 31 SECONDS (21-34) 02/03/18 01:57
[2018-02-05] MEDS: Enoxaparin 30 mg Syringe SC SCH (09:41)
--- NOTE | 2018-02-05 10:56 | CP.PCM.PN ---
Subjective - Date & Time of Evaluation Date of Evaluation: 02/05/18 Time of Evaluation: 10:57 - Subjective Subjective: Alert, oriented, no sob or chest pains, NAD. Objective - Vital Signs/Intake and Output Vital Signs (last 24 hours): Temp Pulse Resp BP Pulse Ox 97.7 F 51 L 20 109/62 97 02/05/18 08:11 02/05/18 08:13 02/05/18 08:11 02/05/18 08:11 02/05/18 08:11 - Medications Medications: Current Medications Allopurinol (Zyloprim) 100 mg PO DAILY [facility] Last Admin: 02/05/18 09:40 Dose: 100 mg Aspirin (Ecotrin) 81 mg PO DAILY [facility] Last Admin: 02/05/18 09:41 Dose: 81 mg Carvedilol (Coreg) 3.125 mg PO BID [facility] Last Admin: 02/05/18 09:41 Dose: 3.125 mg Enoxaparin Sodium (Lovenox) 30 mg SC DAILY [facility] Last Admin: 02/05/18 09:41 Dose: Not Given Fenofibrate (Tricor) 48 mg PO QPM [facility] Last Admin: 02/04/18 18:02 Dose: 48 mg Hydrochlorothiazide (Hydrodiuril) 25 mg PO DAILY [facility] Last Admin: 02/05/18 09:40 Dose: 25 mg Losartan Potassium (Cozaar) 100 mg PO DAILY [facility] Last Admin: 02/05/18 09:40 Dose: 100 mg Rosuvastatin Calcium (Crestor) 10 mg PO HS [facility] Last Admin: 02/04/18 21:18 Dose: 10 mg Ticagrelor (Brilinta) 60 mg PO BID [facility] Last Admin: 02/05/18 09:41 Dose: 60 mg - Labs Labs: 02/03/18 01:57 02/03/18 01:57 PT 11.1 SECONDS (9.7-12.2) 02/03/18 01:57 INR 1.0 02/03/18 01:57 APTT 31 SECONDS (21-34) 02/03/18 01:57 Assessment and Plan - Assessment and Plan (Free Text) Assessment: Admitted with chest pain, seen and examined. Alert awake, no sob or chest pains. Cleared by DR Quevedo, discussed with DR Rivers, plan todischarge home today. Will discontinue coreg due to bradycardia. Advised to follow up with cardiologyst and PMD in 1 week.
--- NOTE | 2018-02-05 11:52 | PN ---
Copied To: José Rivers MD Attending MD: José Rivers MD DATE: 02/04/2018 SUBJECTIVE: The patient still has decreased chest pain. Cardiac enzyme x3 are negative. PHYSICAL EXAMINATION: VITAL SIGNS: Blood pressure 120/72, pulse , respiratory rate 20, temperature 97.9. LUNGS: Clear. CVS: S1, S2 regular. ABDOMEN: Soft. ASSESSMENT: 1. Chest pain, rule out coronary artery disease. 2. Hypertension. 3. Hyperlipidemia. PLAN: Awaiting stress Myoview. Monitor the patient. José Rivers MD
--- NOTE | 2018-02-05 21:37 | CARD ---
APPROVED REPORT Date of service: 02/04/2018 Protocol: PHARMACOLOGICAL STRESS Test Type: LEXISCAN Test Indications: CHEST PAIN Medications: LIST SCAN Medical History: CHEST PAIN Target HR: 141 bpm Resting ECG: normal Resting Heart Rate: 61 bpm Resting Blood Pressure: 143/80mmHg submaximum (85%): 120 bpm TEST SUMMARY [id number]:[id number]/80.5. INFUSIONDOSE 100:300.00.01.061/.4. [id number]:300.00.01.037037/60.0. PROCEDURE Pharmacologic stress testing was performed using 0.4mg per 5ml of regadenoson given intravenously over 7-10 seconds. POST EXERCISE Reason for Termination: Protocol Completed Target HR: No Max HR: 61 bpm 58% of Maximum Predicted HR: 141 bpm Exercise duration: 00:30 min:sec, 0 Stage Exercise capacity: 1.0METs Max Blood Pressure: 143/80mmHg Blood Pressure response to exercise: normal resting BP - appropriate response Heart Rate response to exercise: appropriate Chest Pain: No, none Angina index: 0 Arrhythmia: No, none ST Change: No, none Deviation: 0 mm INTERPRETATION Stress EKG Conclusion: Nuclear report to follow EXAM: Myocardial Perfusion REST/STRESS Imaging Protocol The imaging protocol used to acquire images was Stress Tc-99m/rest Tc-99m 1 day Rest Spect myocardial perfusion imaging was performed in supine position 45 minutes following the injection of 12.3 mCi of Tc-99 Myoview. Gated Stress Spect was performed 45 minutes after intravenous 32.7 mCi Tc-99 Myoview injection. The images were gated to evaluate regional wall motion and calculate ventricular ejection fraction.Images were reconstructed using backfilter projection method in short horizontal and verticle long axis. Spect slices were generated. RESTING DATA EDV69.73fbWI9.80L/min ESV21.00mlMyocardial Fbyv683.00g Av. Heart Rate58.00bpm EF70.00% STRESS DATA EDV65.06mmNA9.30L/min ESV17.00mlMyocardial Ytiv237.00g EF74.00% Regional WT score at stress:0.00 Regional WM score at stress:0.00 Summed WT score at stress:2.00 Av. Heart Rate69.00bpmSummed WM score at stress:1.00 LV Perf. Quant 17 Seg. SSS11.00 17 Seg. SRS14.00 17 Seg. SDS0.00 Stress Defect Extent (% LAD)0.00Rest Defect Extent (% LAD)1.30Rev. Defect Extent (% LAD)0.00 Stress Defect Extent (% LCX)41.30Rest Defect Extent (% LCX)45.00Rev. Defect Extent (% LCX)0.00 Stress Defect Extent (% RCA)30.00Rest Defect Extent (% RCA)41.10Rev. Defect Extent (% RCA)0.00 Stress Defect Extent (% ASHLEY)20.70Rest Defect Extent (% ASHLEY)24.10Rev. Defect Extent (% ASHLEY)0.00 Other Information Quality:Good Left Ventricle LV Function:Left ventricle systolic function is normal. The Ejection Fraction is >55%. Conclusion 1. Moderate sized fixed inferior and lateral wall defect likely prior infarction. No stress induced ischemia. Normal EF
--- NOTE | 2018-02-05 22:29 | CP.PCM.DIS ---
Provider - Provider Date of Admission: 02/03/18 04:09 Attending physician: José Rivers MD Hospital Course - Lab Results Lab Results: Most Recent Lab Values WBC 5.8 K/uL (4.8-10.8) 02/03/18 01:57 RBC 3.64 Mil/uL (3.80-5.20) L 02/03/18 01:57 Hgb 11.2 g/dL (11.0-16.0) 02/03/18 01:57 Hct 33.1 % (34.0-47.0) L 02/03/18 01:57 MCV 91.1 fL (81.0-99.0) 02/03/18 01:57 MCH 30.8 pg (27.0-31.0) 02/03/18 01:57 MCHC 33.8 g/dL (33.0-37.0) 02/03/18 01:57 RDW 15.0 % (11.5-14.5) H 02/03/18 01:57 Plt Count 248 K/uL (130-400) 02/03/18 01:57 MPV 10.9 fL (7.2-11.7) 02/03/18 01:57 Neut % (Auto) 52.9 % (50.0-75.0) 02/03/18 01:57 Lymph % (Auto) 29.3 % (20.0-40.0) 02/03/18 01:57 [place] % (Auto) 12.6 % (0.0-10.0) H 02/03/18 01:57 Eos % (Auto) 3.7 % (0.0-4.0) 02/03/18 01:57 Baso % (Auto) 1.5 % (0.0-2.0) 02/03/18 01:57 Neut # (Auto) 3.1 K/uL (1.8-7.0) 02/03/18 01:57 Lymph # (Auto) 1.7 K/uL (1.0-4.3) 02/03/18 01:57 [place] # (Auto) 0.7 K/uL (0.0-0.8) 02/03/18 01:57 Eos # (Auto) 0.2 K/uL (0.0-0.7) 02/03/18 01:57 Baso # (Auto) 0.1 K/uL (0.0-0.2) 02/03/18 01:57 PT 11.1 SECONDS (9.7-12.2) 02/03/18 01:57 INR 1.0 02/03/18 01:57 APTT 31 SECONDS (21-34) 02/03/18 01:57 Sodium 144 mmol/L (132-148) 02/03/18 01:57 Potassium 4.2 mmol/L (3.6-5.2) 02/03/18 01:57 Chloride 108 mmol/L (98-107) H 02/03/18 01:57 Carbon Dioxide 25 mmol/L (22-30) 02/03/18 01:57 Anion Gap 15 (10-20) 02/03/18 01:57 BUN 47 mg/dL (7-17) H 02/03/18 01:57 Creatinine 1.8 mg/dL (0.7-1.2) H 02/03/18 01:57 Est GFR ( Amer) 33 02/03/18 01:57 Est GFR (Non-Af Amer) 27 02/03/18 01:57 POC Glucose (mg/dL) 100 mg/dL (65-110) 02/05/18 11:59 Random Glucose 106 mg/dL (65-105) H 02/03/18 01:57 Hemoglobin A1c 6.3 % (4.2-6.5) 02/03/18 06:25 Calcium 10.1 mg/dl (8.6-10.4) 02/03/18 01:57 Magnesium 2.1 mg/dL (1.6-2.3) 02/03/18 02:09 Total Bilirubin 0.4 mg/dL (0.2-1.3) 02/03/18 01:57 AST 27 U/L (14-36) 02/03/18 01:57 ALT 25 U/L (9-52) 02/03/18 01:57 Alkaline Phosphatase 37 U/L (38-126) L 02/03/18 01:57 Total Creatine Kinase 80 U/L (30-135) 02/03/18 14:07 CK-MB (Mass) 1.05 ng/mL (0.0-3.38) 02/03/18 14:07 Troponin I 0.0210 ng/mL (0.00-0.120) 02/03/18 14:07 Total Protein 7.3 g/dL (6.3-8.3) 02/03/18 01:57 Albumin 4.0 g/dL (3.5-5.0) 02/03/18 01:57 Globulin 3.3 gm/dL (2.2-3.9) 02/03/18 01:57 Albumin/Globulin Ratio 1.2 (1.0-2.1) 02/03/18 01:57 Triglycerides 85 mg/dL (0-149) 02/03/18 02:09 Cholesterol 140 mg/dL (0-199) 02/03/18 02:09 LDL Cholesterol Direct 50 mg/dL (0-129) 02/03/18 02:09 HDL Cholesterol 51 mg/dL (30-70) 02/03/18 02:09 TSH 3rd Generation 1.52 mIU/L (0.46-4.68) 02/03/18 04:38 Discharge Plan - Follow Up Plan Condition: GOOD Disposition: HOME/ ROUTINE Instructions: High Blood Pressure (DC), Chest Pain (DC), High Cholesterol (DC) Additional Instructions: Follow up with :Dr Rivers in one week . Follow up Dr Sae Ramirez in 2 weeks. Referrals: Blaise Quevedo MD [Staff Provider] - José Rivers MD [Staff Provider] -
--- NOTE | 2018-02-06 07:53 | CP.PCM.PN ---
Subjective - Date & Time of Evaluation Date of Evaluation: 02/05/18 Time of Evaluation: 08:20 - Subjective Subjective: Patient denies chest pain and dyspnea No stress induced ischemia Normal EF Objective - Vital Signs/Intake and Output Vital Signs (last 24 hours): Temp Pulse Resp BP Pulse Ox 97.7 F 51 L 20 109/62 97 02/05/18 08:11 02/05/18 08:13 02/05/18 08:11 02/05/18 08:11 02/05/18 08:11 - Labs Labs: 02/03/18 01:57 02/03/18 01:57 PT 11.1 SECONDS (9.7-12.2) 02/03/18 01:57 INR 1.0 02/03/18 01:57 APTT 31 SECONDS (21-34) 02/03/18 01:57 - Constitutional Appears: Well - Head Exam Head Exam: ATRAUMATIC, NORMAL INSPECTION - Eye Exam Eye Exam: EOMI, PERRL Pupil Exam: NORMAL ACCOMODATION - ENT Exam ENT Exam: Mucous Membranes Moist - Neck Exam Neck Exam: Normal Inspection - Respiratory Exam Respiratory Exam: Clear to Ausculation Bilateral, NORMAL BREATHING PATTERN - Cardiovascular Exam Cardiovascular Exam: REGULAR RHYTHM, RRR, +S1, +S2 - GI/Abdominal Exam GI & Abdominal Exam: Soft, Normal Bowel Sounds - Extremities Exam Extremities Exam: Full ROM - Neurological Exam Neurological Exam: Alert, Awake, Oriented x3 - Psychiatric Exam Psychiatric exam: Normal Affect, Normal Mood Assessment and Plan - Assessment and Plan (Free Text) Assessment: 77 F with atypical chest pain Hx of CAD HTN Normal stress test F/U Dr. Larson as out patient for Cardiology D/W Patient and Dr. Larson
--- NOTE | 2018-02-07 07:49 | DS ---
Copied To: José Rivers MD Attending MD: José Rivers MD ADMISSION DIAGNOSIS: Chest pain. DISCHARGE DIAGNOSES: coronary chest pain, hypertension, hyperlipidemia, and diabetes. HISTORY OF PRESENT ILLNESS: This is a 77-year-old female with history of hypertension, hyperlipidemia, diabetes, coronary artery disease with stent who was admitted with chest pain. CT was ruled out by two sets of negative cardiac enzymes, and she underwent stress test and echocardiogram and both results were benign. The patient is being discharged with outpatient followup. CONDITION UPON DISCHARGE: Stable. PHYSICAL EXAMINATION: VITAL SIGNS: Blood pressure 109/62, pulse 58, respiratory rate 20, temperature 97.7. LUNGS: Clear. CVS: S1, S2 regular. ABDOMEN: Soft. PLAN: Discharge the patient. José Rivers MD
== END 2018-02-05 13:57 | disposition home or self-care (01) | DRG 313 ==
LOC: C.ER 01:28 → C.9E 04:09 → C.6T 11:47
PROVIDERS: ADMIT Internal Medicine; ATTEND Internal Medicine
DX: R07.89 Other chest pain (principal); I25.10 Atherosclerotic heart disease of native coronary artery without angina pectoris; I12.9 Hypertensive chronic kidney disease with stage 1 through stage 4 chronic kidney disease, or unspecified chronic kidney disease; E11.22 Type 2 diabetes mellitus with diabetic chronic kidney disease; I48.91 Unspecified atrial fibrillation; N18.9 Chronic kidney disease, unspecified; G30.9 Alzheimer's disease, unspecified; F02.80 Dementia in other diseases classified elsewhere, unspecified severity, without behavioral disturbance, psychotic disturbance, mood disturbance, and anxiety; E78.5 Hyperlipidemia, unspecified; E78.00 Pure hypercholesterolemia, unspecified; M81.0 Age-related osteoporosis without current pathological fracture; Z95.5 Presence of coronary angioplasty implant and graft

== ENCOUNTER 2018-03-10 08:40 | Emergency (ER) | payer MEDICARE, OTHER ==
[2018-03-10 08:41] VITALS: PULSE 102; BMI 24.7
[2018-03-10 08:45] VITALS: RESP 18; O2SAT 98
[2018-03-10] MEDS ORDERED: Lidocaine 5% Patch TD STA (09:09)
[2018-03-10] MEDS ORDERED: Lidocaine 5% Patch TD ONE (09:25)
--- NOTE | 2018-03-10 11:50 | C.PDOC ---
Time Seen by Provider: 03/10/18 08:42 Chief Complaint (Nursing): Lower Extremity Problem/Injury Past Medical History Vital Signs: Last Vital Signs Temp 98.2 F 03/10/18 08:45 Pulse 69 03/10/18 08:45 Resp 18 03/10/18 08:45 BP 165/76 H 03/10/18 08:45 Pulse Ox 98 03/10/18 08:45 - Medical History PMH: Alzheimer's Disease, Arthritis, Atrial Fibrillation, CAD, Diabetes, HTN, Hypercholesterolemia, Osteoporosis, Chronic Kidney Disease Denies: TIA Surgical History: Coronary Stent - [facility] Procedures CORONAR ARTERIOGR-2 CATH (01/26/14) INJECT/INFUSE NEC (01/26/14) INSERTION OF ONE VASCULAR STENT (01/26/14) INSERTION OF TWO VASCULAR STENTS (09/28/12) INSRT OF DRUG-ELUTING CORON ARTERY STENTS(S) (01/26/14) LEFT HEART CARDIAC CATH (01/26/14) LT HEART ANGIOCARDIOGRAM (01/26/14) PERCUTANEOUS TRANSLUMINAL CORONARY ANGIOPLASTY [PTCA] (01/26/14) PROCEDURE ON SINGLE VESSEL (01/26/14) TRANSLUMINAL CORONARY ATHERECTOMY (01/26/14) Family History: States: Unknown Family Hx, Diabetes - Social History Hx Tobacco Use: No Hx Alcohol Use: No Hx Substance Use: No - Immunization History Hx Tetanus Toxoid Vaccination: No Hx Influenza Vaccination: No Hx Pneumococcal Vaccination: No ED Course And Treatment O2 Sat by Pulse Oximetry: 98 Disposition Counseled Patient/Family Regarding: Diagnosis, Need For Followup, Rx Given - Disposition Referrals: Jewel Mak MD [Staff Provider] - Disposition: HOME/ ROUTINE Disposition Time: 11:47 Condition: STABLE Prescriptions: Ibuprofen [Motrin] 600 mg PO TID #15 tab Lidocaine 5% [Lidoderm] 1 ea TD DAILY #3 patch Instructions: Sciatica Forms: Gen Discharge Inst Rwandan, [facility] (Rwandan) - Clinical Impression Clinical Impression: Joint pain, Sciatica
[2018-03-10 12:01] VITALS: BP 136/69; PULSE 57; TEMP 97.5
== END 2018-03-10 12:01 | disposition home or self-care (01) ==
LOC: C.ER 08:40
DX: M25.50 Pain in unspecified joint (principal); M54.30 Sciatica, unspecified side

== ENCOUNTER 2018-03-22 15:35 | Emergency (ER) | payer MEDICARE, OTHER ==
[2018-03-22 15:36] VITALS: PULSE 102; BMI 24.7
[2018-03-22 15:50] VITALS: TEMP 98.1
[2018-03-22] MEDS ORDERED: Oxycodone/Acetaminophen 5/325 mg Tab PO STA (16:31)
[2018-03-22] MEDS ORDERED: Oxycodone/Acetaminophen 5/325 mg Tab ONE (16:43)
--- NOTE | 2018-03-22 16:51 | C.PDOC ---
History Of Present Illness 78 year old female with a history of diabetes and atrial fibrillation presents to the ED for evaluation of lower pain that radiates to the left leg for the last month. Patient was seen 03/10/18 for similar symptoms. Notes she has a scheduled appointment with her specialist on 04/07/18 however symptoms have worsened prompting visit to the ED. Denies trauma, injuries, weakness, abdominal pain, saddle anesthesia, dysuria, hematuria, incontinence to the urine or stool, numbness, fever, nausea, vomiting, and any other associated symptoms. Time Seen by Provider: 03/22/18 16:21 Chief Complaint (Nursing): Back Pain History Per: Patient History/Exam Limitations: no limitations Onset/Duration Of Symptoms: Days Current Symptoms Are (Timing): Still Present Past Medical History Reviewed: Historical Data, Nursing Documentation, Vital Signs Vital Signs: Last Vital Signs Temp 98.1 F 03/22/18 15:47 Pulse 82 03/22/18 15:47 Resp 20 03/22/18 15:47 BP 123/69 03/22/18 15:47 Pulse Ox 100 03/22/18 15:47 - Medical History PMH: Alzheimer's Disease, Arthritis, Atrial Fibrillation, CAD, Diabetes, HTN, Hypercholesterolemia, Hyperlipidemia, Osteoporosis, Chronic Kidney Disease Surgical History: Coronary Stent - [facility] Procedures CORONAR ARTERIOGR-2 CATH (01/26/14) INJECT/INFUSE NEC (01/26/14) INSERTION OF ONE VASCULAR STENT (01/26/14) INSERTION OF TWO VASCULAR STENTS (09/28/12) INSRT OF DRUG-ELUTING CORON ARTERY STENTS(S) (01/26/14) LEFT HEART CARDIAC CATH (01/26/14) LT HEART ANGIOCARDIOGRAM (01/26/14) PERCUTANEOUS TRANSLUMINAL CORONARY ANGIOPLASTY [PTCA] (01/26/14) PROCEDURE ON SINGLE VESSEL (01/26/14) TRANSLUMINAL CORONARY ATHERECTOMY (01/26/14) Family History: States: Diabetes - Social History Hx Tobacco Use: No Hx Alcohol Use: No Hx Substance Use: No - Immunization History Hx Tetanus Toxoid Vaccination: No Hx Influenza Vaccination: No Hx Pneumococcal Vaccination: No Review Of Systems Except As Marked, All Systems Reviewed And Found Negative. Musculoskeletal: Positive for: Back Pain Physical Exam - Physical Exam Appears: Non-toxic, No Acute Distress Skin: Warm, Dry, No Rash Head: Atraumatic, Normacephalic Eye(s): bilateral: Normal Inspection, PERRL, EOMI Oral Mucosa: Moist Neck: Normal ROM, Supple Chest: Symmetrical Cardiovascular: Rhythm Regular, No Murmur Respiratory: Normal Breath Sounds, No Rales, No Rhonchi, No Wheezing Gastrointestinal/Abdominal: Soft, No Tenderness, No Guarding, No Rebound, Other (no palpable mass) Back: Paraspinal Tenderness Extremity: Normal ROM, No Calf Tenderness, Capillary Refill (<2 seconds), No Deformity, No Swelling, Other (atraumatic. normal color and temperature. no palpable cords. ) Pulses: Left Dorsalis Pedis: Normal, Right Dorsalis Pedis: Normal Neurological/Psych: Oriented x3, Normal Speech, Normal Motor, Normal Sensation Gait: Steady ED Course And Treatment ECG Rhythm: Sinus Bradycardia Interpretation Of ECG: Sinus bradycardia. Rate: 53 bpm. Normal intervals. Normal axil LVH. Nonspecific T wave changes. Rate From EC O2 Sat by Pulse Oximetry: 100 (RA) Pulse Ox Interpretation: Normal - Other Rad X-ray Lumbar Spine X-Ray: Viewed By Me, Read By Radiologist Interpretation: FINDINGS: Multilevel degenerative changes including intervertebral disc space narrowing and osteophyte formation. Facet h ypertrophy. Mild curvature of the lumbar spine convex to the right. No acute displaced fracture. Pelvic calcifications, likely phleboliths. Dense atherosclerotic calcifications of the aorta. IMPRESSION: Multilevel degenerative changes. Medical Decision Making Medical Decision Making: Impression: sciatica Plan: --EKG --Glucose, POC --X-ray LS Spine --Given Oxycodone. Progress/Update: X-ray was viewed by me and indicate changes to the lumbar spine. EKG viewed by me. Patient stable for discharge home. Advised to visit a pain management doctor, phone number of a pain management doctor was provided. Disposition Counseled Patient/Family Regarding: Studies Performed, Diagnosis, Need For Followup, Rx Given - Disposition Disposition: HOME/ ROUTINE Disposition Time: 18:15 Condition: STABLE Additional Instructions: follow up with pain management doctor within 2 days you must call to make an appointment call to make an appointment take medications as prescribed return to ER if symptoms worsens or progress Prescriptions: oxyCODONE/Acetaminophen [Percocet 5/325 mg Tab] 1 ea PO TID PRN #12 tab PRN Reason: Cough Instructions: Sciatica (DC) Forms: Gen Discharge Inst Kyrgyz, [facility] (Kyrgyz) - Clinical Impression Clinical Impression: Sciatica - Scribe Statement The provider has reviewed the documentation as recorded by the Scribe (Anabel Tesfaye) Provider Attestation: All medical record entries made by the Scribe were at my direction and personally dictated by me. I have reviewed the chart and agree that the record accurately reflects my personal performance of the history, physical exam, [facility] decision making, and the department course for this patient. I have also personally directed, reviewed, and agree with the discharge instructions and disposition.
--- NOTE | 2018-03-22 17:17 | RAD ---
Date of service: 03/22/2018 PROCEDURE: Radiographs of the Lumbar Spine. HISTORY: back pain COMPARISON: No prior. FINDINGS: Multilevel degenerative changes including intervertebral disc space narrowing and osteophyte formation. Facet hypertrophy. Mild curvature of the lumbar spine convex to the right. No acute displaced fracture. Pelvic calcifications, likely phleboliths. Dense atherosclerotic calcifications of the aorta. IMPRESSION: Multilevel degenerative changes.
[2018-03-22 18:26] VITALS: BP 162/78; PULSE 62; RESP 16
[2018-03-22 20:58] VITALS: O2SAT 100
== END 2018-03-22 18:26 | disposition home or self-care (01) ==
LOC: C.ER 15:35
DX: M54.30 Sciatica, unspecified side (principal)

== ENCOUNTER 2018-04-13 22:00 | Emergency (ER) | payer MEDICARE, OTHER ==
[2018-04-13 22:01] VITALS: PULSE 102; BMI 24.7
[2018-04-13] MEDS ORDERED: Aspirin 325 mg EC Tablets PO STA (23:13)
--- NOTE | 2018-04-13 23:19 | C.PDOC ---
History Of Present Illness 78 year old female with PMHx of HTN presents to the ED c/o left pericardial chets pain that started approximately at 19:00. Patient described her pain as "heavy sensation". Patient called her foot specialist Dr. Larson who advised her to come to the ED for evaluation. Patient reports having similar pain in the past but has not happened in a long time. Patient denies fever, chills, headache, dizziness, visual changes, SOB, palpitations, weakness, numbness. Time Seen by Provider: 04/13/18 22:48 Chief Complaint (Nursing): Chest Pain History Per: Patient History/Exam Limitations: no limitations Onset/Duration Of Symptoms: Hrs (19:00) Current Symptoms Are (Timing): Still Present Quality: Pressure Associated Symptoms: denies: Nausea, Dyspnea, Diaphoresis Recent travel outside of the [place]: No Additional History Per: Patient Past Medical History Reviewed: Historical Data, Nursing Documentation, Vital Signs Vital Signs: Last Vital Signs Temp 98 F 04/13/18 22:12 Pulse 70 04/13/18 22:27 Resp 18 04/13/18 22:12 BP 196/116 H 04/13/18 22:12 Pulse Ox 98 04/13/18 22:12 - Medical History PMH: Alzheimer's Disease, Arthritis, Atrial Fibrillation, CAD, Diabetes, HTN, Hypercholesterolemia, Hyperlipidemia, Osteoporosis, Chronic Kidney Disease Denies: TIA Surgical History: Coronary Stent - [facility] Procedures CORONAR ARTERIOGR-2 CATH (01/26/14) INJECT/INFUSE NEC (01/26/14) INSERTION OF ONE VASCULAR STENT (01/26/14) INSERTION OF TWO VASCULAR STENTS (09/28/12) INSRT OF DRUG-ELUTING CORON ARTERY STENTS(S) (01/26/14) LEFT HEART CARDIAC CATH (01/26/14) LT HEART ANGIOCARDIOGRAM (01/26/14) PERCUTANEOUS TRANSLUMINAL CORONARY ANGIOPLASTY [PTCA] (01/26/14) PROCEDURE ON SINGLE VESSEL (01/26/14) TRANSLUMINAL CORONARY ATHERECTOMY (01/26/14) Family History: States: Diabetes - Social History Hx Tobacco Use: No Hx Alcohol Use: No Hx Substance Use: No - Immunization History Hx Tetanus Toxoid Vaccination: No Hx Influenza Vaccination: No Hx Pneumococcal Vaccination: No Review Of Systems Constitutional: Negative for: Fever, Chills Eyes: Negative for: Vision Change Cardiovascular: Positive for: Chest Pain. Negative for: Palpitations Respiratory: Negative for: Cough, Shortness of Breath Gastrointestinal: Negative for: Nausea, Vomiting Skin: Negative for: Rash Neurological: Negative for: Weakness, Numbness, Headache, Dizziness Physical Exam - Physical Exam Appears: Non-toxic, No Acute Distress Skin: Normal Color, Warm, Dry Head: Atraumatic, Normacephalic Eye(s): bilateral: Normal Inspection Neck: Normal ROM, Supple Chest: Symmetrical Cardiovascular: Rhythm Regular Respiratory: Normal Breath Sounds, No Rales, No Rhonchi, No Wheezing Gastrointestinal/Abdominal: Soft, No Tenderness, No Guarding, No Rebound Extremity: Normal ROM, No Tenderness, No Swelling Neurological/Psych: Oriented x3, Normal Speech, Normal Cognition Gait: Steady ED Course And Treatment - Laboratory Results Result Diagrams: 04/13/18 23:47 04/13/18 23:47 Lab Interpretation: No Acute Changes (Hgb 10.8, BUN 32, Cr 1.5) ECG: Interpreted By Ri ECG Rhythm: Sinus Rhythm (with LVH) O2 Sat by Pulse Oximetry: 98 (ON RA) Pulse Ox Interpretation: Normal - Radiology CXR: Interpreted by Ri CXR Interpretation: Yes: No Acute Disease Reevaluation Time: 00:59 Reassessment Condition: Improved - Physician Consult Information Time Consulting Physician Contacted: 00:59 Physician Contacted: Kiah Larson Outcome Of Conversation: He will follow up with the patient in the office tomorrow. Medical Decision Making Medical Decision Making: Plan: * EKG * Labs * CXR * Aspirin 325 mg PO Disposition Counseled Patient/Family Regarding: Studies Performed, Diagnosis, Need For Followup - Disposition Referrals: Kiah Larson MD [Staff Provider] - Disposition: HOME/ ROUTINE Disposition Time: 01:00 Condition: STABLE Instructions: Chest Pain Forms: [facility] (Arabic) Print Language: AUSTRALIAN - Clinical Impression Clinical Impression: Precordial pain - Scribe Statement The provider has reviewed the documentation as recorded by the Scribe Surendra Millard All medical record entries made by the Scribe were at my direction and personally dictated by me. I have reviewed the chart and agree that the record accurately reflects my personal performance of the history, physical exam, medical decision making, and the department course for this patient. I have also personally directed, reviewed, and agree with the discharge instructions and disposition.
[2018-04-13] MEDS ORDERED: Aspirin 325 mg EC Tablets PO ONE (23:28)
[2018-04-13 23:52] LABS: BASO # 0.1 K/uL (0.0-0.2); BASO % 1.7 % (0.0-2.0); EOS # 0.3 K/uL (0.0-0.7); EOS % 5.4 % (0.0-4.0); HEMOGLOBIN 10.8 g/dL (11.0-16.0); LYMPH # 1.4 K/uL (1.0-4.3); LYMPH % 23.1 % (20.0-40.0); MEAN CELL VOLUME 91.7 fL (81.0-99.0); MEAN CORPUSCULAR HEMOGLOBIN 30.6 pg (27.0-31.0); MEAN CORPUSCULAR HGB CONC 33.3 g/dL (33.0-37.0); MEAN PLATELET VOLUME 10.5 fL (7.2-11.7); MONO # 0.8 K/uL (0.0-0.8); MONO % 12.1 % (0.0-10.0); NEUT # 3.6 K/uL (1.8-7.0); NEUT % 57.7 % (50.0-75.0); RBC 3.52 Mil/uL (3.80-5.20); RED CELL DISTRIBUTION WIDTH 14.7 % (11.5-14.5); WHITE BLOOD COUNT 6.2 K/uL (4.8-10.8)
[2018-04-14 00:33] LABS: ALB/GLOB RATIO 1.3 (1.0-2.1); ALBUMIN 3.8 g/dL (3.5-5.0)
[2018-04-14 00:40] VITALS: RESP 16
[2018-04-14 00:46] LABS: TROPONIN I 0.024 ng/mL (0.00-0.120)
[2018-04-14 01:10] VITALS: BP 129/70; PULSE 63; TEMP 98; O2SAT 95
--- NOTE | 2018-04-14 10:37 | RAD ---
Date of service: 04/13/2018 HISTORY: chest pain COMPARISON: 02/03/2018 FINDINGS: LUNGS: No active pulmonary disease. PLEURA: No significant pleural effusion identified, no pneumothorax apparent. CARDIOVASCULAR: No aortic atherosclerotic calcification present. Normal cardiac size. No pulmonary vascular congestion. OSSEOUS STRUCTURES: No significant abnormalities. VISUALIZED UPPER ABDOMEN: Normal. OTHER FINDINGS: None. IMPRESSION: No active disease.
--- NOTE | 2018-04-14 12:02 | CARD ---
APPROVED REPORT Date of service: 04/13/2018 EKG Measurement Heart [id number] NM [id number] <Conclusion> Normal sinus rhythm Minimal voltage criteria for LVH, may be normal variant Borderline ECG
== END 2018-04-14 01:39 | disposition home or self-care (01) ==
LOC: C.ER 22:00
DX: R07.2 Precordial pain (principal)

== ENCOUNTER 2018-07-30 03:24 | Emergency (ER) | payer MEDICARE, OTHER ==
[2018-07-30 03:25] VITALS: PULSE 102; BMI 24.7
[2018-07-30 03:48] VITALS: TEMP 98.4
[2018-07-30 03:54] VITALS: PULSE 61; RESP 16
--- NOTE | 2018-07-30 04:10 | C.PDOC ---
History Of Present Illness 78 year old female with PMHx of HTN presents to the ED for evaluation of elevated blood pressure. Patient states she feels anxious, was checking her blood pressure at home every hour and noticed it was elevated. Patient denies fever, chills, headache, visual changes, slurred speech, CP, SOB, palpitations, weakness, numbness. Time Seen by Provider: 07/30/18 04:10 Chief Complaint (Nursing): High Blood Pressure History Per: Patient History/Exam Limitations: no limitations Onset/Duration Of Symptoms: Hrs Current Symptoms Are (Timing): Still Present Recent travel outside of the [place]: No Additional History Per: Patient Past Medical History Reviewed: Historical Data, Nursing Documentation, Vital Signs Vital Signs: Last Vital Signs Temp 98.4 F 07/30/18 03:32 Pulse 61 07/30/18 03:48 Resp 16 07/30/18 03:48 BP 177/86 H 07/30/18 03:48 Pulse Ox 98 07/30/18 03:48 - Medical History PMH: Alzheimer's Disease, Arthritis, Atrial Fibrillation, CAD, Diabetes, HTN, Hypercholesterolemia, Hyperlipidemia, Osteoporosis, Chronic Kidney Disease Denies: TIA Surgical History: Coronary Stent - [facility] Procedures CORONAR ARTERIOGR-2 CATH (01/26/14) INJECT/INFUSE NEC (01/26/14) INSERTION OF ONE VASCULAR STENT (01/26/14) INSERTION OF TWO VASCULAR STENTS (09/28/12) INSRT OF DRUG-ELUTING CORON ARTERY STENTS(S) (01/26/14) LEFT HEART CARDIAC CATH (01/26/14) LT HEART ANGIOCARDIOGRAM (01/26/14) PERCUTANEOUS TRANSLUMINAL CORONARY ANGIOPLASTY [PTCA] (01/26/14) PROCEDURE ON SINGLE VESSEL (01/26/14) TRANSLUMINAL CORONARY ATHERECTOMY (01/26/14) Family History: States: Diabetes - Social History Hx Tobacco Use: No Hx Alcohol Use: No Hx Substance Use: No - Immunization History Hx Tetanus Toxoid Vaccination: No Hx Influenza Vaccination: No Hx Pneumococcal Vaccination: No Review Of Systems Constitutional: Negative for: Fever, Chills Eyes: Negative for: Vision Change Cardiovascular: Negative for: Chest Pain, Palpitations Respiratory: Negative for: Shortness of Breath Gastrointestinal: Negative for: Nausea, Vomiting, Abdominal Pain Skin: Negative for: Rash Neurological: Negative for: Weakness, Numbness, Headache, Dizziness Physical Exam - Physical Exam Appears: Non-toxic, No Acute Distress Skin: Warm, Dry Head: Normacephalic Eye(s): bilateral: Normal Inspection, PERRL, EOMI Neck: Supple Chest: Symmetrical Cardiovascular: Rhythm Regular Respiratory: No Rales, No Rhonchi, No Wheezing Gastrointestinal/Abdominal: Soft, No Tenderness, No Guarding, No Rebound Extremity: Bilateral: Atraumatic, Normal Color And Temperature, Normal ROM Neurological/Psych: Oriented x3, Normal Speech, Normal Cognition Gait: Steady ED Course And Treatment - Laboratory Results Result Diagrams: 07/30/18 04:26 07/30/18 04:26 ECG: Interpreted By Me, Viewed By Me ECG Rhythm: Sinus Rhythm (60), Nonspecific Changes O2 Sat by Pulse Oximetry: 98 (On RA) Pulse Ox Interpretation: Normal Progress Note: Plan: - EKG. - Labs. - CXR. - UA Reevaluation Time: 05:42 Reassessment Condition: Improved Medical Decision Making Medical Decision Making: Upon provider reevaluation patient is feeling better, is medically stable, and requires no further treatment in the ED at this time. Patient will be discharged home . Counseling was provided and all questions were answered regarding diagnosis and need for follow up withdr rolle. There is agreement to discharge plan. Return if symptoms persist or worsen. Disposition Counseled Patient/Family Regarding: Studies Performed, Diagnosis, Need For Followup - Disposition Referrals: Cj Rolle [Staff Provider] - Disposition: HOME/ ROUTINE Disposition Time: 05:43 Condition: FAIR Additional Instructions: Please return if symptoms recur Instructions: High Blood Pressure (DC), Anxiety, Adult (DC) Forms: [employer] (Latvian) Print Language: INDONESIAN - Clinical Impression Clinical Impression: Hypertension, Anxiety - Scribe Statement The provider has reviewed the documentation as recorded by the Scribe Surendra Millard All medical record entries made by the Scribe were at my direction and personally dictated by me. I have reviewed the chart and agree that the record accurately reflects my personal performance of the history, physical exam, medical decision making, and the department course for this patient. I have also personally directed, reviewed, and agree with the discharge instructions and disposition.
[2018-07-30 04:29] LABS: BASO # 0.1 K/uL (0.0-0.2); BASO % 1.5 % (0.0-2.0); EOS # 0.2 K/uL (0.0-0.7); EOS % 3.9 % (0.0-4.0); HEMOGLOBIN 11.2 g/dL (11.0-16.0); LYMPH # 1.4 K/uL (1.0-4.3); LYMPH % 24.8 % (20.0-40.0); MEAN CELL VOLUME 91.3 fL (81.0-99.0); MEAN CORPUSCULAR HEMOGLOBIN 29.2 pg (27.0-31.0); MEAN PLATELET VOLUME 10.9 fL (7.2-11.7); MONO # 0.7 K/uL (0.0-0.8); MONO % 12.8 % (0.0-10.0); NEUT # 3.2 K/uL (1.8-7.0); NRBC % 0.1 % (0.0-2.0); RBC 3.84 Mil/uL (3.80-5.20); RED CELL DISTRIBUTION WIDTH 14.9 % (11.5-14.5); WHITE BLOOD COUNT 5.7 K/uL (4.8-10.8)
[2018-07-30 04:40] LABS: ALB/GLOB RATIO 1.3 (1.0-2.1); ALBUMIN 3.8 g/dL (3.5-5.0); ALT/SGPT 25 U/L (9-52); AST/SGOT 30 U/L (14-36); BLOOD UREA NITROGEN 30 mg/dL (7-17); CALCIUM 9.8 mg/dl (8.6-10.4); GFR NON-AFRICAN AMERICAN 36
[2018-07-30 05:13] LABS: SQUAMOUS EPITHIAL < 1 /hpf (0-5); URINE BILIRUBIN NEGATIVE (NEGATIVE); URINE BLOOD NEGATIVE (NEGATIVE); URINE CLARITY Clear (Clear); URINE COLOR Yellow (YELLOW); URINE GLUCOSE (UA) NORMAL (Normal); URINE LEUKOCYTE ESTERASE 1+ Leu/uL (Negative); URINE PROTEIN NEGATIVE (NEGATIVE); URINE UROBILINOGEN NORMAL mg/dL (0.2-1.0)
[2018-07-30 05:23] VITALS: BP 176/83
[2018-07-30 05:44] VITALS: O2SAT 98
--- NOTE | 2018-07-30 14:05 | RAD ---
Date of service: 07/30/2018 PROCEDURE: CHEST RADIOGRAPH, 1 VIEW HISTORY: chest pain COMPARISON: Comparison is made to the previous study dated 04/13/2018 FINDINGS: LUNGS: No evidence of new infiltrate or consolidation in the lungs PLEURA: No pneumothorax or pleural fluid seen. CARDIOVASCULAR: No aortic atherosclerotic calcification present. Normal. OSSEOUS STRUCTURES: No significant abnormalities. VISUALIZED UPPER ABDOMEN: Normal. OTHER FINDINGS: None. IMPRESSION: No active disease.
== END 2018-07-30 05:59 | disposition home or self-care (01) ==
LOC: C.ER 03:24
DX: I12.9 Hypertensive chronic kidney disease with stage 1 through stage 4 chronic kidney disease, or unspecified chronic kidney disease (principal); N18.9 Chronic kidney disease, unspecified; F41.9 Anxiety disorder, unspecified; E78.00 Pure hypercholesterolemia, unspecified; I25.10 Atherosclerotic heart disease of native coronary artery without angina pectoris; I48.91 Unspecified atrial fibrillation; M81.0 Age-related osteoporosis without current pathological fracture; G30.9 Alzheimer's disease, unspecified

== ENCOUNTER 2018-08-06 08:52 | Emergency (ER) | payer MEDICARE, OTHER ==
[2018-08-06 08:53] VITALS: PULSE 102; BMI 24.7
[2018-08-06 09:03] VITALS: TEMP 97.5
[2018-08-06] MEDS ORDERED: DTap Vaccine 0.5 ml Vial IM ONE (09:28)
--- NOTE | 2018-08-06 09:50 | C.PDOC ---
History Of Present Illness 78 year old F with history of HTN, CAD with stents, HLD, presented with complaint of fall and sustained abrasion to both knee, right shoulder pain. She denies any head trauma or LOC. She is able to ambulate after the fall. Time Seen by Provider: 08/06/18 09:06 Chief Complaint (Nursing): Upper Extremity Problem/Injury Onset/Duration Of Symptoms: Days Current Symptoms Are (Timing): Still Present Severity: Mild Pain Scale Rating Of: 7 Past Medical History Vital Signs: Last Vital Signs Temp 97.5 F L 08/06/18 08:55 Pulse 62 08/06/18 08:55 Resp 18 08/06/18 08:55 BP 171/77 H 08/06/18 08:55 Pulse Ox 99 08/06/18 08:55 - Medical History PMH: Alzheimer's Disease, Arthritis, Atrial Fibrillation, CAD, Diabetes, HTN, Hypercholesterolemia, Hyperlipidemia, Osteoporosis, Chronic Kidney Disease Denies: TIA Surgical History: Coronary Stent - [facility] Procedures CORONAR ARTERIOGR-2 CATH (01/26/14) INJECT/INFUSE NEC (01/26/14) INSERTION OF ONE VASCULAR STENT (01/26/14) INSERTION OF TWO VASCULAR STENTS (09/28/12) INSRT OF DRUG-ELUTING CORON ARTERY STENTS(S) (01/26/14) LEFT HEART CARDIAC CATH (01/26/14) LT HEART ANGIOCARDIOGRAM (01/26/14) PERCUTANEOUS TRANSLUMINAL CORONARY ANGIOPLASTY [PTCA] (01/26/14) PROCEDURE ON SINGLE VESSEL (01/26/14) TRANSLUMINAL CORONARY ATHERECTOMY (01/26/14) Family History: States: Diabetes - Social History Hx Tobacco Use: No Hx Alcohol Use: No Hx Substance Use: No - Immunization History Hx Tetanus Toxoid Vaccination: No Hx Influenza Vaccination: No Hx Pneumococcal Vaccination: No Review Of Systems Musculoskeletal: Positive for: Shoulder Pain, Leg Pain Physical Exam - Physical Exam Appears: Well Skin: Normal Color Head: Atraumatic Eye(s): bilateral: Normal Inspection Nose: Normal Oral Mucosa: Moist Lips: Normal Appearing Throat: Normal Neck: Normal Lymphatic: Deferred Chest: Symmetrical Rectal: Deferred Back: Normal Inspection Pelvic: Normal External Exam Extremity: Tenderness Extremity: Left: Other (abrasion to both legs and knees), Right: Other ED Course And Treatment O2 Sat by Pulse Oximetry: 99 Medical Decision Making Medical Decision Makin78 year old s/p fall b/l knee abrasions, right shoulder pain r/o fx Plan: pain control, imagings and reassess Reassess: Patient reports she is feeling better and feels comfortable going home. Disposition - Disposition Referrals: [facility] at [facility] [Outside] [facility] at [facility] [Outside] [facility] [place] [Outside] Disposition: HOME/ ROUTINE Disposition Time: 12:11 Condition: GOOD Additional Instructions: Follow up with your pcp in a few dsys and take Tylnol as directed. Prescriptions: Acetaminophen [Tylenol 325mg tab] 325 mg PO Q4 #20 tab Bacitracin OINT 1 applic TP BID #1 tube Instructions: Skin Abrasions, Contusion (DC) Forms: [employer] (Divehi) - Clinical Impression Clinical Impression: Contusion, Skin abrasion
[2018-08-06] MEDS ORDERED: Tetanus/Diphtheria Toxoids 0.5 ml Syringe IM ONE ×2 (10:10→10:18)
[2018-08-06 12:13] VITALS: BP 147/82; PULSE 74; RESP 16
--- NOTE | 2018-08-06 13:05 | RAD ---
Date of service: 08/06/2018 PROCEDURE: Bilateral Knee Radiographs. HISTORY: s/p fall COMPARISON: None. FINDINGS: BONES: Right Knee: Normal. No fracture. Left Knee: Normal. No fracture. JOINTS: Right Knee: Normal. No osteoarthritis. Left knee: Normal. No osteoarthritis. SOFT TISSUES: Right Knee: Normal. Left Knee: Normal. JOINT EFFUSION: Right Knee: None. Left Knee: None. OTHER FINDINGS: None. IMPRESSION: Normal radiographs of the knees.
--- NOTE | 2018-08-06 13:09 | RAD ---
Date of service: 08/06/2018 PROCEDURE: Radiographs of the Right Shoulder HISTORY: s/p fall COMPARISON: No prior. FINDINGS: BONES: Normal. No fracture. JOINTS: Glenohumeral articulation unremarkable. Mild acromioclavicular degenerative arthritis noted. SOFT TISSUES: There is calcification in the soft tissues about the proximal and mid humerus which may reflect a myositis. OTHER FINDINGS: None. IMPRESSION: Acromioclavicular degenerative arthritis. Soft tissue calcification possibly reflecting a myositis.
[2018-08-07 14:12] VITALS: O2SAT 99
== END 2018-08-06 12:11 | disposition home or self-care (01) ==
LOC: C.ER 08:52
DX: S80.211A Abrasion, right knee, initial encounter (principal); S80.212A Abrasion, left knee, initial encounter; W19.XXXA Unspecified fall, initial encounter; Z23 Encounter for immunization

== ENCOUNTER 2018-08-24 20:09 | Emergency (ER) | payer MEDICARE, OTHER ==
[2018-08-24 20:09] VITALS: PULSE 102; BMI 24.7
[2018-08-24 20:25] VITALS: BP 174/79; PULSE 61; RESP 20; TEMP 97.5; O2SAT 100
--- NOTE | 2018-08-24 20:42 | C.PDOC ---
History Of Present Illness 78 year old female presents with palpitations and mild headache. Denies nausea or vomiting. Chief Complaint (Nursing): Headache History Per: Patient History/Exam Limitations: no limitations Onset/Duration Of Symptoms: Hrs Current Symptoms Are (Timing): Still Present Associated Symptoms: Headache, Other (Palpitations) Recent travel outside of the [place]: No Past Medical History Reviewed: Historical Data, Nursing Documentation, Vital Signs Vital Signs: Last Vital Signs Temp 97.5 F L 08/24/18 20:17 Pulse 61 08/24/18 20:17 Resp 20 08/24/18 20:17 BP 174/79 H 08/24/18 20:17 Pulse Ox 100 08/24/18 20:17 - Medical History PMH: Alzheimer's Disease, Arthritis, Atrial Fibrillation, CAD, Diabetes, HTN, Hypercholesterolemia, Hyperlipidemia, Osteoporosis, Chronic Kidney Disease Denies: TIA Surgical History: Coronary Stent - [facility] Procedures CORONAR ARTERIOGR-2 CATH (01/26/14) INJECT/INFUSE NEC (01/26/14) INSERTION OF ONE VASCULAR STENT (01/26/14) INSERTION OF TWO VASCULAR STENTS (09/28/12) INSRT OF DRUG-ELUTING CORON ARTERY STENTS(S) (01/26/14) LEFT HEART CARDIAC CATH (01/26/14) LT HEART ANGIOCARDIOGRAM (01/26/14) PERCUTANEOUS TRANSLUMINAL CORONARY ANGIOPLASTY [PTCA] (01/26/14) PROCEDURE ON SINGLE VESSEL (01/26/14) TRANSLUMINAL CORONARY ATHERECTOMY (01/26/14) Family History: States: Diabetes - Social History Hx Tobacco Use: No Hx Alcohol Use: No Hx Substance Use: No - Immunization History Hx Tetanus Toxoid Vaccination: No Hx Influenza Vaccination: No Hx Pneumococcal Vaccination: No Review Of Systems Constitutional: Negative for: Fever, Chills Cardiovascular: Positive for: Palpitations. Negative for: Chest Pain Respiratory: Negative for: Cough, Shortness of Breath Gastrointestinal: Negative for: Nausea, Vomiting Neurological: Positive for: Headache. Negative for: Weakness, Numbness Physical Exam - Physical Exam Appears: Non-toxic, No Acute Distress, Other (Alert, conscious, no focal deficit) Skin: Normal Color, Warm, Dry Head: Atraumatic, Normacephalic Eye(s): bilateral: Normal Inspection, PERRL, EOMI Oral Mucosa: Moist Neck: Normal, Supple Chest: Symmetrical, No Tenderness Cardiovascular: Rhythm Regular Respiratory: Normal Breath Sounds, No Rales, No Rhonchi, No Wheezing Gastrointestinal/Abdominal: Soft, No Tenderness Neurological/Psych: Oriented x3, Normal Speech, Other (No focal deficit) Gait: Steady ED Course And Treatment - Laboratory Results Result Diagrams: 08/24/18 20:48 08/24/18 20:48 ECG: Interpreted By Me ECG Rhythm: Sinus Bradycardia ECG Interpretation: No Acute Changes Interpretation Of ECG: Sinus tachycardia, possible LVH or normal variant, borderline tracings. Rate From EC O2 Sat by Pulse Oximetry: 100 (Room air) Pulse Ox Interpretation: Normal Progress Note: EKG and blood work ordered. Xanax administered. Disposition Counseled Patient/Family Regarding: Diagnosis - Disposition Referrals: [facility] [Outside] Disposition: HOME/ ROUTINE Disposition Time: 21:55 Condition: STABLE Instructions: High Blood Pressure in Adults, Palpitations, Low Salt Diet Forms: [facility] (Vietnamese), Gen Discharge Inst Turkmen Print Language: LITHUANIAN - POA Present On Arrival: None - Clinical Impression Clinical Impression: Palpitation, Hypertension, Renal insufficiency - Scribe Statement The provider has reviewed the documentation as recorded by the Scribe Herbert De Anda All medical record entries made by the Scribe were at my direction and personally dictated by me. I have reviewed the chart and agree that the record accurately reflects my personal performance of the history, physical exam, medical decision making, and the department course for this patient. I have also personally directed, reviewed, and agree with the discharge instructions and disposition.
[2018-08-24 20:51] LABS: BASO % 0.2 % (0.0-2.0); EOS # 0.2 K/uL (0.0-0.7); EOS % 3.9 % (0.0-4.0); LYMPH # 1.7 K/uL (1.0-4.3); LYMPH % 28.1 % (20.0-40.0); MEAN CELL VOLUME 92.2 fL (81.0-99.0); MEAN CORPUSCULAR HGB CONC 31.4 g/dL (33.0-37.0); MONO # 0.8 K/uL (0.0-0.8); NEUT # 3.4 K/uL (1.8-7.0); NEUT % 54.8 % (50.0-75.0); NRBC % 0.2 % (0.0-2.0); RBC 3.81 Mil/uL (3.80-5.20); RED CELL DISTRIBUTION WIDTH 15.3 % (11.5-14.5); WHITE BLOOD COUNT 6.2 K/uL (4.8-10.8)
[2018-08-24 21:15] LABS: ALB/GLOB RATIO 1.3 (1.0-2.1); ALBUMIN 3.9 g/dL (3.5-5.0); CALCIUM 10.1 mg/dl (8.6-10.4)
--- NOTE | 2018-08-25 10:35 | CARD ---
APPROVED REPORT Date of service: 08/24/2018 EKG Measurement Heart [id number] [id number] <Conclusion> Sinus bradycardia Moderate voltage criteria for LVH, may be normal variant Borderline ECG
== END 2018-08-24 22:38 | disposition home or self-care (01) ==
LOC: C.ER 20:09
DX: I10 Essential (primary) hypertension (principal); R00.2 Palpitations; N28.9 Disorder of kidney and ureter, unspecified; I25.10 Atherosclerotic heart disease of native coronary artery without angina pectoris; I48.91 Unspecified atrial fibrillation; E78.00 Pure hypercholesterolemia, unspecified

== ENCOUNTER 2018-08-29 01:51 | Emergency (ER) | payer MEDICARE, OTHER ==
[2018-08-29 01:54] VITALS: PULSE 102; BMI 24.7
[2018-08-29 02:08] VITALS: PULSE 60
--- NOTE | 2018-08-29 02:32 | C.PDOC ---
History Of Present Illness 78-year-old female, whose past medical history includes hypertension, presents to the ED for evaluation of elevated blood pressure noted earlier today. Patient states she take a combination of blood pressure medications, including Carbatrol. Tonight, patient measured her pressure and found her systolic reading to be 177, prompting ED visit. Upon arrival in ED triage, patient was noted to have pressure of 153/72. Patient denies headache, dizziness, chest pain and shortness of breath. Time Seen by Provider: 08/29/18 02:00 Chief Complaint (Nursing): High Blood Pressure History Per: Patient History/Exam Limitations: no limitations Onset/Duration Of Symptoms: Hrs Current Symptoms Are (Timing): Better Associated Symptoms: denies: Chest Pain, Headache Exacerbating Factor(s): Pos: None Past Medical History Reviewed: Historical Data, Nursing Documentation, Vital Signs Vital Signs: Last Vital Signs Temp 97.7 F 08/29/18 02:04 Pulse 60 08/29/18 02:04 Resp 14 08/29/18 02:04 BP 153/72 H 08/29/18 02:04 Pulse Ox 97 08/29/18 02:04 - Medical History PMH: Alzheimer's Disease, Arthritis, Atrial Fibrillation, CAD, Diabetes, HTN, Hypercholesterolemia, Hyperlipidemia, Osteoporosis, Chronic Kidney Disease Denies: TIA Surgical History: Coronary Stent - [facility] Procedures CORONAR ARTERIOGR-2 CATH (01/26/14) INJECT/INFUSE NEC (01/26/14) INSERTION OF ONE VASCULAR STENT (01/26/14) INSERTION OF TWO VASCULAR STENTS (09/28/12) INSRT OF DRUG-ELUTING CORON ARTERY STENTS(S) (01/26/14) LEFT HEART CARDIAC CATH (01/26/14) LT HEART ANGIOCARDIOGRAM (01/26/14) PERCUTANEOUS TRANSLUMINAL CORONARY ANGIOPLASTY [PTCA] (01/26/14) PROCEDURE ON SINGLE VESSEL (01/26/14) TRANSLUMINAL CORONARY ATHERECTOMY (01/26/14) Family History: States: Diabetes - Social History Hx Tobacco Use: No Hx Alcohol Use: No Hx Substance Use: No - Immunization History Hx Tetanus Toxoid Vaccination: No Hx Influenza Vaccination: No Hx Pneumococcal Vaccination: No Review Of Systems Constitutional: Negative for: Fever, Chills, Weakness Cardiovascular: Positive for: Other (elevated blood pressure ). Negative for: Chest Pain Respiratory: Negative for: Cough, Shortness of Breath Neurological: Negative for: Weakness, Numbness, Headache, Dizziness Physical Exam - Physical Exam Appears: Well, Non-toxic, No Acute Distress Skin: Normal Color, Warm, No Rash Head: Atraumatic, Normacephalic Eye(s): bilateral: Normal Inspection, PERRL, EOMI Oral Mucosa: Moist Neck: Normal ROM, Supple Chest: Symmetrical Respiratory: No Accessory Muscle Use, Other (normal inspiratory effort) Extremity: Normal ROM Extremity: Bilateral: Atraumatic Pulses: Left Radial: Normal, Right Radial: Normal Neurological/Psych: Oriented x3, Normal Cranial Nerves (grossly intact ) ED Course And Treatment O2 Sat by Pulse Oximetry: 97 (on RA) Pulse Ox Interpretation: Normal Medical Decision Making Medical Decision Making: Patient is reassured that her vital signs are not concerning at this time. On reassessment, patient is resting comfortably, showing no signs of distress and is stable for discharge. Patient states she is scheduled to follow-up with her doctor next month. She is advised to keep the appointment, and return to the ED if symptoms persist or worsen. Disposition Counseled Patient/Family Regarding: Diagnosis, Need For Followup - Disposition Disposition: HOME/ ROUTINE Disposition Time: 02:31 Condition: STABLE Instructions: High Blood Pressure Emergencies Forms: Gen Discharge Inst Nicaraguan, I AND [employer] Connect (Nicaraguan) Print Language: KITTITIAN - Clinical Impression Clinical Impression: Hypertension - PA / ASSISTANT DISTRICT ATTORNEY / Resident Statement MD/DO has reviewed & agrees with the documentation as recorded. - Scribe Statement The provider has reviewed the documentation as recorded by the Scribe (Inga Zimmerman) All medical record entries made by the Scribe were at my direction and personally dictated by me. I have reviewed the chart and agree that the record accurately reflects my personal performance of the history, physical exam, medical decision making, and the department course for this patient. I have also personally directed, reviewed, and agree with the discharge instructions and disposition.
[2018-08-29 02:47] VITALS: BP 162/82; RESP 16; TEMP 98.1
[2018-08-29 05:06] VITALS: O2SAT 97
== END 2018-08-29 03:22 | disposition home or self-care (01) ==
LOC: C.ER 01:51
DX: I12.9 Hypertensive chronic kidney disease with stage 1 through stage 4 chronic kidney disease, or unspecified chronic kidney disease (principal); N18.9 Chronic kidney disease, unspecified; I25.10 Atherosclerotic heart disease of native coronary artery without angina pectoris; I48.91 Unspecified atrial fibrillation; E78.00 Pure hypercholesterolemia, unspecified

== ENCOUNTER 2018-09-08 03:18 | Emergency (ER) | payer MEDICARE, OTHER ==
[2018-09-08 03:18] VITALS: PULSE 102; BMI 24.7
[2018-09-08 03:35] VITALS: O2SAT 100
--- NOTE | 2018-09-08 03:50 | C.PDOC ---
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 Patient also c/o headache. Patient has multiple prior ED visits for same complaints. Patient was seen on 08/24 and 08/29 for same presentation. Patient saw a Saw Runner for her palpitations and had her medications adjusted. Patient is still pending follow up on November. Patient denies fever, chills, visual changes, nausea, vomit, rash, weakness, numbness. Chief Complaint (Nursing): Medical Clearance History Per: Patient History/Exam Limitations: no limitations Onset/Duration Of Symptoms: Hrs Current Symptoms Are (Timing): Still Present Quality Of Symptoms: Asymptomatic Exacerbating Factor(s): Pos: Recent Change In Medication Recent travel outside of the [place]: No Additional History Per: Patient Past Medical History Reviewed: Historical Data, Nursing Documentation, Vital Signs Vital Signs: Last Vital Signs Temp 98.0 F 09/08/18 03:31 Pulse 62 09/08/18 03:31 Resp 18 09/08/18 03:31 BP 180/86 H 09/08/18 03:31 Pulse Ox 100 09/08/18 03:31 - Medical History PMH: Alzheimer's Disease, Arthritis, Atrial Fibrillation, CAD, Diabetes, HTN, Hypercholesterolemia, Hyperlipidemia, Osteoporosis, Chronic Kidney Disease Denies: TIA Surgical History: Coronary Stent - [facility] Procedures CORONAR ARTERIOGR-2 CATH (01/26/14) INJECT/INFUSE NEC (01/26/14) INSERTION OF ONE VASCULAR STENT (01/26/14) INSERTION OF TWO VASCULAR STENTS (09/28/12) INSRT OF DRUG-ELUTING CORON ARTERY STENTS(S) (01/26/14) LEFT HEART CARDIAC CATH (01/26/14) LT HEART ANGIOCARDIOGRAM (01/26/14) PERCUTANEOUS TRANSLUMINAL CORONARY ANGIOPLASTY [PTCA] (01/26/14) PROCEDURE ON SINGLE VESSEL (01/26/14) TRANSLUMINAL CORONARY ATHERECTOMY (01/26/14) Family History: States: Diabetes - Social History Hx Tobacco Use: No Hx Alcohol Use: No Hx Substance Use: No - Immunization History Hx Tetanus Toxoid Vaccination: No Hx Influenza Vaccination: No Hx Pneumococcal Vaccination: No Review Of Systems Constitutional: Negative for: Fever, Chills Eyes: Negative for: Vision Change Cardiovascular: Positive for: Palpitations. Negative for: Chest Pain Respiratory: Negative for: Cough, Shortness of Breath Gastrointestinal: Negative for: Nausea, Vomiting, Abdominal Pain Skin: Negative for: Rash Neurological: Positive for: Headache. Negative for: Weakness, Numbness, Dizziness Physical Exam - Physical Exam Appears: Non-toxic, No Acute Distress Skin: Normal Color, Warm, Dry Head: Atraumatic, Normacephalic Eye(s): bilateral: Normal Inspection, PERRL, EOMI Oral Mucosa: Moist Neck: Normal ROM, Supple Chest: Symmetrical Cardiovascular: Rhythm Regular Respiratory: Normal Breath Sounds, No Rales, No Rhonchi, No Wheezing Gastrointestinal/Abdominal: Soft, No Tenderness, No Guarding, No Rebound Extremity: Normal ROM, No Tenderness, No Swelling Neurological/Psych: Oriented x3, Normal Speech, Normal Cognition Gait: Steady ED Course And Treatment ECG: Interpreted By Me, Viewed By Me ECG Rhythm: Sinus Rhythm Rate From EC (BPM) O2 Sat by Pulse Oximetry: 100 (ON RA) Pulse Ox Interpretation: Normal Progress - Data Reviewed Data Reviewed: EKG, Old records Medical Decision Making Medical Decision Making: Plan: * EKG * Tylenol 650 mg PO Patient stable in the ED denies chest pain, SOB, visual changes, slurred speech. Patient was advised to keep follow up with dietary manager for further evaluation. Disposition Counseled Patient/Family Regarding: Studies Performed, Diagnosis, Need For Followup - Disposition Referrals: [facility] [Other] Disposition: HOME/ ROUTINE Disposition Time: 03:50 Condition: GOOD Instructions: Palpitations (DC) Forms: [facility] (Cuban) Print Language: GABONESE - Clinical Impression Clinical Impression: Palpitations, Headache - Scribe Statement The provider has reviewed the documentation as recorded by the Scribaimee Millard All medical record entries made by the Garyibe were at my direction and personally dictated by me. I have reviewed the chart and agree that the record accurately reflects my personal performance of the history, physical exam, medical decision making, and the department course for this patient. I have also personally directed, reviewed, and agree with the discharge instructions and disposition.
[2018-09-08 04:03] VITALS: BP 158/78; PULSE 58; RESP 16; TEMP 98.1
--- NOTE | 2018-09-09 11:14 | CARD ---
APPROVED REPORT Date of service: 09/08/2018 EKG Measurement Heart [id number] <Conclusion> Sinus bradycardia Moderate voltage criteria for LVH, may be normal variant Borderline ECG
== END 2018-09-08 04:19 | disposition home or self-care (01) ==
LOC: C.ER 03:18
DX: R00.2 Palpitations (principal); R51 Headache; E78.00 Pure hypercholesterolemia, unspecified; I25.10 Atherosclerotic heart disease of native coronary artery without angina pectoris; I48.91 Unspecified atrial fibrillation; I12.9 Hypertensive chronic kidney disease with stage 1 through stage 4 chronic kidney disease, or unspecified chronic kidney disease; N18.9 Chronic kidney disease, unspecified; G30.9 Alzheimer's disease, unspecified; M81.0 Age-related osteoporosis without current pathological fracture

== ENCOUNTER 2018-09-22 14:08 | Emergency (ER) | payer MEDICARE, OTHER ==
[2018-09-22 14:09] VITALS: PULSE 102; BMI 24.7
[2018-09-22 14:26] VITALS: RESP 18
--- NOTE | 2018-09-22 14:51 | C.PDOC ---
History Of Present Illness 78 year old female brought by ambulance to the ED because she had a "blood pressure of 9." Patient has had 3 prior evaluations in August 2018 for similar complaints with normal findings. Patient has a PMHx of dementia and anxiety. Patient denies chest pain, SOB, and lightheadedness. Time Seen by Provider: 09/22/18 14:42 Chief Complaint (Nursing): Weakness/Neurological Deficit History Per: Patient, EMS History/Exam Limitations: no limitations Onset/Duration Of Symptoms: Hrs Current Symptoms Are (Timing): Still Present Past Medical History Reviewed: Historical Data, Nursing Documentation, Vital Signs Vital Signs: Last Vital Signs Temp 98 F 09/22/18 14:23 Pulse 66 09/22/18 14:23 Resp 18 09/22/18 14:23 BP 139/69 09/22/18 14:23 Pulse Ox 98 09/22/18 14:23 - Medical History PMH: Alzheimer's Disease, Anxiety, Arthritis, Atrial Fibrillation, CAD, Dementia, Diabetes, HTN, Hypercholesterolemia, Hyperlipidemia, Osteoporosis, Chronic Kidney Disease Denies: TIA Surgical History: Coronary Stent - [facility] Procedures CORONAR ARTERIOGR-2 CATH (01/26/14) INJECT/INFUSE NEC (01/26/14) INSERTION OF ONE VASCULAR STENT (01/26/14) INSERTION OF TWO VASCULAR STENTS (09/28/12) INSRT OF DRUG-ELUTING CORON ARTERY STENTS(S) (01/26/14) LEFT HEART CARDIAC CATH (01/26/14) LT HEART ANGIOCARDIOGRAM (01/26/14) PERCUTANEOUS TRANSLUMINAL CORONARY ANGIOPLASTY [PTCA] (01/26/14) PROCEDURE ON SINGLE VESSEL (01/26/14) TRANSLUMINAL CORONARY ATHERECTOMY (01/26/14) Family History: States: Diabetes - Social History Hx Tobacco Use: No Hx Alcohol Use: No Hx Substance Use: No - Immunization History Hx Tetanus Toxoid Vaccination: No Hx Influenza Vaccination: No Hx Pneumococcal Vaccination: No Review Of Systems Constitutional: Negative for: Weakness Cardiovascular: Negative for: Chest Pain, Light Headedness Respiratory: Negative for: Shortness of Breath Neurological: Negative for: Weakness Physical Exam - Physical Exam Appears: No Acute Distress, Other (anxious, demented female) Skin: Normal Color, Warm, Dry Head: Atraumatic, Normacephalic Neck: Normal ROM, Supple Chest: Symmetrical, No Deformity Cardiovascular: Rhythm Regular, No Murmur Respiratory: No Accessory Muscle Use, No Rales, No Rhonchi, No Wheezing Gastrointestinal/Abdominal: Soft, No Tenderness Neurological/Psych: Oriented x3, Normal Speech ED Course And Treatment O2 Sat by Pulse Oximetry: 98 (in RA) Progress Note: Patient instructed to follow up with Dr. Rolle. Medical Decision Making Medical Decision Making: anxiety about ? BP reading @ home 3 benign visits in past month with normal labs anxiety/dementia normal VS's/exam defer repeat w/u for normal presentation opt f/u w PMD Disposition Doctor Will See Patient In The: Office Counseled Patient/Family Regarding: Studies Performed, Diagnosis - Disposition Referrals: Cj Rolle [Staff Provider] - Disposition: HOME/ ROUTINE Disposition Time: 14:50 Condition: GOOD Additional Instructions: normal evaluacion' signos vitales normales Sigue con Dr. Rolle Instructions: Dementia (Including Alzheimer Disease), Anxiety, Adult (DC) Forms: [employer] (Senegalese) Print Language: BULGARIAN - Clinical Impression Clinical Impression: Anxiety, Dementia - Scribe Statement The provider has reviewed the documentation as recorded by the Scribe (Luba Irene) All medical record entries made by the Scribe were at my direction and personally dictated by me. I have reviewed the chart and agree that the record accurately reflects my personal performance of the history, physical exam, medical decision making, and the department course for this patient. I have also personally directed, reviewed, and agree with the discharge instructions and disposition.
[2018-09-22 15:15] VITALS: BP 145/63; PULSE 63; TEMP 97.9
[2018-09-22 22:19] VITALS: O2SAT 98
== END 2018-09-22 15:17 | disposition home or self-care (01) ==
LOC: C.ER 14:08
DX: F41.9 Anxiety disorder, unspecified (principal); F02.80 Dementia in other diseases classified elsewhere, unspecified severity, without behavioral disturbance, psychotic disturbance, mood disturbance, and anxiety; G30.9 Alzheimer's disease, unspecified; I25.10 Atherosclerotic heart disease of native coronary artery without angina pectoris; I48.91 Unspecified atrial fibrillation; E78.00 Pure hypercholesterolemia, unspecified; I12.9 Hypertensive chronic kidney disease with stage 1 through stage 4 chronic kidney disease, or unspecified chronic kidney disease; N18.9 Chronic kidney disease, unspecified; M81.0 Age-related osteoporosis without current pathological fracture

== ENCOUNTER 2018-11-04 19:26 | Emergency (ER) | payer MEDICARE, OTHER | END 2018-11-05 00:51 | disposition home or self-care (01) | LOC: C.ER 11-05 00:51 ==